=== PATIENT | female | born 1950 | race Caucasian/White ===

== ENCOUNTER 2023-07-05 08:47 | Outpatient (OUT) | payer MEDICARE, SELFPAY ==
[2023-07-05 09:16] LABS: Basophils Percent Auto 0.3 % (0.2-2.0); Eosinophils Percent Auto 0.8 % (0.9-7.0); Hematocrit 37.9 % (36.0-48.0); Hemoglobin 12.5 g/dL (12.0-16.0); Immature Granulocytes Abs Auto 0.09 10^3/uL (0.00-0.03); Immature Granulocytes Pct Auto 2.3 % (0.0-0.5); Lymphocytes Absolute Auto 1.7 10^3/uL (1.2-3.8); Lymphocytes Percent Auto 43.7 % (20.5-60.0); Mean Corpuscular Hemoglobin 31.6 pg (26.7-34.0); Mean Corpuscular Volume 95.7 fL (81.0-99.0); Mean Platelet Volume 9.6 fL (9.5-13.5); Monocytes Absolute Auto 0.4 10^3/uL (0.3-0.8); Monocytes Percent Auto 9.8 % (1.7-12.0); Neutrophils Absolute Auto 1.7 10^3/uL (1.4-6.5); Neutrophils Percent Auto 43.1 % (43.0-75.0); Platelet Count 248 10^3/uL (150-450); Red Blood Count 3.96 10^6/uL (4.20-5.40); Red Cell Distribution Width 12.5 % (11.0-15.0)
[2023-07-05 09:36] LABS: Estimated Average Glucose 120 mg/dL; Glycohemoglobin A1C 5.8 % (4.5-6.2)
[2023-07-05 09:48] LABS: Alanine Aminotransferase 19 U/L (14-59); Albumin Level 3.8 g/dL (3.4-5.0); Alkaline Phosphatase 64 U/L (46-116); Anion Gap 9.4; Aspartate Amino Transferase 10 U/L (15-37); BUN Creatinine Ratio 20.8; Bilirubin Total 0.7 mg/dL (0.2-1.0); Calcium 9.2 mg/dL (8.5-10.1); Carbon Dioxide 31.7 mmol/L (21.0-32.0); Chloride 104 mmol/L (98-107); Chol HDL Ratio 5.3; Cholesterol 276 mg/dL (<=200); Estimated GFR (African America >60 (>=60); Estimated GFR (Non-African Ame >60 (>=60); Free T3 2.65 pg/mL (2.18-3.98); Globulin 3.8 g/dL; Glucose 84 mg/dL (74-106); HDL Cholesterol 52 mg/dL (40-60); Potassium 4.1 mmol/L (3.5-5.1); Sodium 141 mmol/L (136-145); Thyroid Stimulating Hormone 2.032 uIU/mL (0.358-3.740); Total Protein 7.6 g/dL (6.4-8.2); Triglycerides 118 mg/dL (<=150); VLDL CHOLESTEROL 23.6 mg/dL
== END 2023-07-05 08:48 | disposition home or self-care (01) ==
LOC: LAB 08:51
PROVIDERS: PCP Family Medicine; Visit Provider Family Medicine
DX: E78.00 Pure hypercholesterolemia, unspecified (principal); I10 Essential (primary) hypertension; R73.09 Other abnormal glucose; D64.9 Anemia, unspecified; E55.9 Vitamin D deficiency, unspecified
CPT/HCPCS: 36415; 80053; 80061; 82306; 83036; 83540; 84436; 84443; 84481; 85025

== ENCOUNTER 2024-02-05 07:59 | Outpatient (OUT) | payer MEDICARE, SELFPAY ==
--- OUTSIDE RECORDS SUMMARY | 2024-02-05 08:16 | XMS_ITS | CCD ---
Author Organization [facility] CliniSyal Care Team Providers Care Booth Operator Name Role Phone Katharine Mak Unavailable Tavares Blount Primary Care Physician TARAH, DR CHAPIN Admitting Unavailable HOY, DR CHAPIN Attending Unavailable HOY, DR CHAPIN Primary Care Unavailable HOY, DR CHAPIN Consulting Unavailable West, DR Robertson Admitting Unavailable West, DR Robertson Attending Unavailable HOY, DR CHAPIN Primary Care Unavailable MOUKARBEL, DR MORALES Admitting Unavailable MOUKARBEL, DR MORALES Attending Unavailable HOY, DR CHAPIN Primary Care Unavailable HOY, DR CHAPIN Admitting Unavailable HOY, DR CHAPIN Attending Unavailable HOY, DR CHAPIN Primary Care Unavailable HOY, DR CHAPIN Admitting Unavailable HOY, DR CHAPIN Attending Unavailable HOY, DR CHAPIN Primary Care Unavailable HOY, DR CHAPIN Consulting Unavailable West, DR Robertson Consulting Unavailable HOY, DR CHAPIN Admitting Unavailable HOY, DR CHAPIN Attending Unavailable HOY, DR CHAPIN Primary Care Unavailable HOY, DR CHAPIN Consulting Unavailable ZIEBER, DR MARCEL Lee Consulting Unavailable HOY, DR CHAPIN Admitting Unavailable HOY, DR CHAPIN Attending Unavailable HOY, DR CHAPIN Primary Care Unavailable HOY, DR CHAPIN Consulting Unavailable HOY, DR CHAPIN Admitting Unavailable HOY, DR CHAPIN Attending Unavailable HOY, DR CHAPIN Primary Care Unavailable HOY, DR CHAPIN Consulting Unavailable YULIANAY, DR CHAPIN Admitting Unavailable HOY, DR CHAPIN Attending Unavailable HOY, DR CHAPIN Primary Care Unavailable HOY, DR CHAPIN Consulting Unavailable HOY, DR CHAPIN Admitting Unavailable HOY, DR CHAPIN Attending Unavailable HOY, DR CHAPIN Primary Care Unavailable HOY, DR CHAPIN Consulting Unavailable West, DR Robertson Consulting Unavailable EMILIANO HUTSON Attending Unavailable CARYL, EMILIANO E Attending Unavailable Allergies Allergy Classification Reported Allergen(s) Allergy Type Date of Onset Reaction(s) Facility (1 source) No Known Medication Allergies; Translations: [No Known Medication Allergies] Propensity to adverse reactions (disorder) [facility] Repository Medications Current Medications Medication Drug Class(es) Dates Sig (Normalized) Sig (Original) Aspirin (1 source) Platelet Aggregation Inhibitor, Nonsteroidal Anti-inflammatory Drug Baby Aspirin Active Calcium (1 source) Phosphate Binder, Calcium Calcium Active lisinopril 20 mg oral tablet (3 sources) Angiotensin Converting Enzyme Inhibitor Start: 04-12-2022 take 1 tablet by mouth once daily lisinopril 20 mg Tab 20 mg = 1 tab(s), Oral, Daily, # 30 tab(s), Refills(s) 0 Start Date: 04/12/22 Status: Ordered Lisinopril Activ e lovastatin 40 mg oral tablet (3 sources) HMG-CoA Reductase Inhibitor Start: 04-12-2022 take 1 tablet by mouth once daily lovastatin 40 mg Tab 40 mg = 1 tab(s), Oral, Daily, # 30 tab(s), Refills(s) 0 Start Date: 04/12/22 Status: Ordered Lovastatin Activ e Myrbetriq (2 sources) beta3-Adrenergic Agonist Start: 04-12-2022 Myrbetriq Refills(s) 0 Start Date: 04/12/22 Status: Ordered nitrofurantoin, macrocrystals 50 mg oral capsule (1 source) Nitrofuran Antibacterial Start: 04-17-2022 take 1 capsule by mouth once daily as needed Macrodantin 50 mg Cap 50 mg = 1 cap(s), Oral, Daily, PRN post-coital, # 15 cap(s), Refills(s) 1, Pharmacy: [facility]/pharmacy #[id number], 165, cm, 04/12/22 8:49:00 EDT, Height/Length Dosing, 68, kg, 04/12/22 8:49:00 EDT, Weight Dosing Start Date: 04/17/22 Status: Ordered nitrofurantoin, macrocrystals 25 mg / nitrofurantoin, monohydrate 75 mg oral capsule (1 source) Nitrofuran Antibacterial Start: 08-19-2021 take 1 capsule by mouth every twelve hours Macrobid 100 MG 1 cap(s) Orally bid for 5 day(s) Jul, Active omeprazole 20 mg delayed release oral capsule (3 sources) Proton Pump Inhibitor Start: 04-12-2022 take 1 capsule by mouth once daily omeprazole 20 mg Cap-DR 20 mg = 1 cap(s), Oral, Daily, Refills(s) 0 Start Date: 04/12/22 Status: Ordered Omeprazole Activ e phenazopyridine hydrochloride 200 mg oral tablet (1 source) Start: 08-19-2021 take 1 tablet by mouth every eight hours Pyridium 200 MG 1 tablet after meals Orally Three times a day for 2 day(s) Jul, Active Problems Active Problems Problem Classification Problem Date Documented Date Episodic/Chronic Calculus of urinary tract (4 sources) Kidney stone; Translations: [Calculus of kidney] Onset: 2 Episodic Congestive heart failure; nonhypertensive (1 source) Unspecified diastolic (congestive) heart failure; Translations: [UNSPECIFIED DIASTOLIC HEART FAILURE] Onset: 2 Chronic Disorders of lipid metabolism (2 sources) Hypercholesterolemia 04-12-2022 Chronic Essential hypertension (2 sources) Hypertensive disorder 04-12-2022 Chronic Genitourinary symptoms and ill-defined conditions (4 sources) Unspecified urinary incontinence; Translations: [UNSPECIFIED URINARY INCONTINENCE] Onset: 2 Chronic Genitourinary symptoms and ill-defined conditions (12 sources) Dysuria; Translations: [Hematuria, unspecified] Onset: 1 Resolved: 1 Episodic Hypertension with complications and secondary hypertension (1 source) Hypertensive heart disease with heart failure; Translations: [HTN HEART DISEASE W/HEART FAIL] Onset: 2 Chronic Other screening for suspected conditions (not mental disorders or infectious disease) (4 sources) Encounter for screening mammogram for malignant neoplasm of breast; Translations: [ENC SCR MAMMO MALIG NEOPLASM BREAST] Onset: 2 Episodic Urinary tract infections (10 sources) Urinary tract infection, site not specified; Translations: [Urinary tract infectious disease] Onset: 1 Resolved: 1 Episodic Past or Other Problems Problem Classification Problem Date Documented Da te Episodic/Chronic Deficiency and other anemia (1 source) Anemia, unspecified; Translations: [ANEMIA UNSPECIFIED] Onset: 01-13-2022 Episodic Diabetes mellitus without complication (1 source) Other abnormal glucose; Translations: [OTHER ABNORMAL GLUCOSE] Onset: 01-13-2022 Episodic Nonspecific chest pain (1 source) Chest pain, unspecified; Translations: [CHEST PAIN UNSPECIFIED] Onset: 02-06-2022 Episodic Other lower respiratory disease (4 sources) Dyspnea, unspecified; Translations: [DYSPNEA UNSPECIFIED] Onset: 02-02-2022 Episodic Results Test Name Value Interpretation Reference Range Facility MG MAMM SCREEN 3D SARITA CADon 08-17-2022 MG MAMM SCREEN 3D SARITA CAD Patient: JULIO CÉSAR SEGAL Exam Date: 08/17/2022 : 1950 Gender:F Ordering : DR TAVARES BLOUNT . Admission #: [id number] Family : Order #: [id number] CLICK HERE TO VIEW EXAM RADIOLOGY REPORT PROCEDURE: MAMMOGRAM SCREENING 3D BILATERAL CAD COMPARISON: MG MAMM SCREEN SARITA W CAD, 06/04/2020. MG MAMM SCREEN SARITA W CAD, 11/15/2016. INDICATIONS: Screening mammography Calculator Name NCI Breast Cancer Risk Assessment Tool 5 Year Breast Cancer Risk 1.20% Lifetime Breast Cancer Risk 2.90% Personal Breast Cancer No Personal Ovarian Cancer No Treatments None Family Cancers None LOCATION: [facility] BREAST COMPOSITION: Scattered areas fibroglandular density. FINDINGS: DIAGNOSTIC CATEGORY 2--BENIGN FINDING: RIGHT BREAST: No significant suspicious finding. Scattered benign-appearing calcifications are present. Scattered benign-appearing lymph nodes are present. No significant change has occurred. LEFT BREAST: No significant suspicious finding. Scattered benign-appearing calcifications are present. Scattered benign-appearing lymph nodes are present. No significant change has occurred. RECOMMENDATIONS: ROUTINE MAMMOGRAM AND CLINICAL EVALUATION IN 12 MONTHS. PLEASE NOTE: A NORMAL MAMMOGRAM DOES NOT EXCLUDE THE POSSIBILITY OF BREAST CANCER. A CLINICALLY SUSPICIOUS PALPABLE LUMP SHOULD BE BIOPSIED. Dictated by: Marcel Hinkle M.D. on 08/17/2022 at 15:35 Approved by: Marcel Hinkle M.D. on 08/17/2022 at 15:38 Normal [facility] US KIDNEYS BLADDERon 07-28-2 022 US KIDNEYS BLADDER EXAMINATION: US KIDNEYS BLADDER HISTORY: Incontinence COMPARISON: No relevant comparison available. TECHNIQUE: Ultrasound examination was performed of the bladder. FINDINGS: Right Kidney: Normal in size, contour and echotexture. The cortex measures 1.5 cm. Echogenic foci measuring up to 3 mm, nonobstructing nephrolithiasis. No solid cortical mass or hydronephrosis Height: 6.8 cm Length: 10.8 cm Width: 5.3 cm Left Kidney: Normal in size, contour and echotexture. The cortex measures 1.4 cm. No obstructing nephrolithiasis, solid cortical mass or hydronephrosis Height: 4.7 cm Length: 10.5 cm Width: 4.6 cm Urinary bladder is normal in appearance. Prevoid volume 469 mL. Post void volume 159 mL. Ureteral jets: Visualized bilaterally Other: Septated cystic lesion in the right hepatic lobe measuring 4.6 x 4.9 x 3.2 cm. IMPRESSION: Nonobstructing right nephrolithiasis Post void urinary bladder volume 159 mL Electronically authenticated by: JENNIFER RENE Date: 2022-03-23 06:52 Normal [facility] UA (CLEAN/CATCH) LABEL FUSER TENDER/MICRO I F IND.on 03-08-2022 Bilirubin Ql (U) Negative Normal NEGATIVE [facility] Comment on above: Performed By: #### U RCX #### [facility] [address] [place] [address] Dr. Aimee Villagomez Clarity (U) CLEAR Normal CLEAR [facility] Comment on above: Performed By: #### U RCX #### [facility] [address] [place] [address] Dr. Aimee Villagomez Color (U) LT. YELLOW Normal YELLOW [facility] Comment on above: Performed By: #### U RCX #### [facility] [address] [place] [address] Dr. Aimee Villagomez Glucose Ql (U) Negative Normal NEGATIVE [facility] Comment on above: Performed By: #### U RCX #### [facility] [address] [place] [address] Dr. Aimee Villagomez Hemoglobin Ql (U) Negative Normal NEGATIVE [facility] Comment on above: Performed By: #### U RCX #### [facility] [address] [place] [address] Dr. Aimee Villagomez Ketones Ql (U) Negative Normal NEGATIVE [facility] Comment on above: Performed By: #### U RCX #### [facility] [address] [address] [address] Aimee Villagomez LEUKOCYTES Negative Normal NEGATIVE [facility] Comment on above: Performed By: #### U RCX #### [facility] [address] [place] [address] Dr. Aimee Villagomez Nitrite Ql (U) Negative Normal NEGATIVE [facility] Comment on above: Performed By: #### U RCX #### [facility] [address] [address] [address] Aimee Villagomez pH (U) 7.0 [pH] Normal 5-9 [facility] Comment on above: Performed By: #### U RCX #### [facility] [address] [place] [address] Dr. Aimee Villagomez SPEC GRAVITY 1.010 Normal 1.005-<=1.025 [facility] Comment on above: Performed By: #### U RCX #### [facility] [address] [place] [address] Dr. Aimee Villagomez UA PROTEIN Negative Normal NEGATIVE/ TRACE [facility] Comment on above: Performed By: #### U RCX #### [facility] [address] [place] [address] Dr. Aimee Villagomez UR MICRO IND NOT INDICATED Normal [facility] Comment on above: Performed By: #### U RCX #### [facility] [address] [place] [address] Dr. Aimee Villagomez Urobilinogen Qn (U) 0.2 {Elizabeth'U}/dL Normal 0.2 - 1. 0 [facility] Comment on above: Performed By: #### U RCX #### [facility] [address] [place] [address] Dr. Aimee Villagomez NM STRESS/REST MULTIon 02-02 NM STRESS/REST MULTI Patient: JULIO CÉSAR SEGAL Exam Date: 02/02/2022 : 1950 Gender:F Ordering : DR TAVARES BLOUNT . Admission #: [id number] Family : Order #: [id number] CLICK HERE TO VIEW EXAM RADIOLOGY REPORT PROCEDURE: RADIONUCLIDE IMAGING STRESS/REST MULTI COMPARISON: NM STRESS/REST MULTI, 06/23/2020. INDICATIONS: Chest pain TECHNIQUE: Exam Description: Stress/Rest one day protocol gated SPECT Rest Imagin.3 mCi Tc-99m Cardiolite IV on 02/02/2022 Stress Imaging 30.3 mCi Tc-99m Cardiolite IV on 02/02/2022 Exercise Protocol: Eber Heart Rate (bpm): Rest: 68 Max: 146 PMHR: 99 Blood Pressure: Rest: 144/86 Max: 196/102 Exercise Time: Minutes: 4 Seconds: 37 Stage Reached: Stage: 2 Mets 7.0 Symptoms: Rest and peak stress ECG findings were abnormal and the exercise portion of the study was Non-diagnostic per attending physician Dr. Royal due to EKG changes during recovery. For more details please see separate cardiac stress test report. FINDINGS: QUALITY OF STUDY: Excellent. PERFUSION DEFECT: None. LOCATION: N/A SIZE: N/A. SEVERITY: N/A. TYPE: N/A. WALL MOTION: Normal. LV SIZE: Normal. 54 mL. TID / TCD: None; 0.6 LVEF: Normal. Calculated EF 88%. SUMMARY: Myocardial perfusion imaging study is NORMAL. CONCLUSION: 1. No reversible ischemia 2. Abnormal exercise test secondary to EKG changes Dictated by: Jennifer Rene MD on 02/03/2022 at 11:55 Approved by: Jennifer Rene MD on 02/03/2022 at 11:56 Normal [facility] ECHOCARDIO M/2D COMPLETEon 0 01-18-2022 ECHOCARDIO M/2D COMPLETE Patient: JULIO CÉSAR SEGAL Exam Date: 01/18/2022 : 1950 Gender:F Ordering : DR TAVARES BLOUNT . Admission #: [id number] Family : Order #: [id number] CLICK HERE TO VIEW EXAM ECHOCARDIOGRAM REPORT PROCEDURE: CARDIO PULMONARY ECHOCARDIO M/2D COMP INDICATIONS: Dyspnea COMPARISON: None. DESCRIPTION: COMPLETE ECHOCARDIOGRAM Real-time transthoracic echocardiography with 2D, M-mode, spectral and color flow Doppler performed. QUALITY: Technical quality was limited. 65 150# 120/62 HR 79 LEFT VENTRICLE: Normal chamber size. Mild concentric left ventricular hypertrophy. Global left ventricular systolic function is hyperdynamic. LV EF: Estimated ejection fraction is 75%. DIASTOLIC: Diastolic function is indeterminate. ATRIAL SEPTUM: LEFT ATRIUM: Normal chamber size. RIGHT ATRIUM: Normal chamber size. RIGHT VENTRICLE: Normal chamber size. Normal right ventricular systolic function. TRICUSPID VALVE: Normal mobility and thickness. No stenosis with trivial regurgitation. Unable to calculate right sided pressures due to lack of tricuspid regurgitation. MITRAL VALVE: Normal mobility and thickness. No evidence of mitral valve stenosis. Trivial mitral regurgitation. AORTIC VALVE: Normal trileaflet appearance. No evidence of aortic valve stenosis. No aortic regurgitation. AORTIC ROOT: Normal diameter and appearance. PULMONIC VALVE: Normal thickness and mobility. No stenosis. Trivial regurgitation. PERICARDIUM: No evidence of pericardial effusion. IVC: Not well visualized. PLEURA: CONCLUSION: 1. Mild concentric left ventricular hypertrophy with hyperdynamic systolic function. LVEF is 75% 2. Normal right ventricular systolic function. 3. No significant valvular dysfunction. 4. No pericardial effusion. Adult Echocardiography Procedure Report Left Ventricle Left Atrium Mitral Valve Right Ventricle Aorta Aortic Valve Peak Velocity (Antegrade Flow): 1.58 m/s AoV Area (Peak Aston): 3.29 cm2, 3.29 cm2 Peak Velocity(Antegrade Flow): 1.58 m/s Peak Gradient(Antegrade Flow): 10.03 mm[Hg] Tricuspid Valve Peak Velocity: 0.50 m/s, 0.50 m/s Pulmonic Valve PV Max Aston (0.6 - 0.9 m per sec): 0.97 m/s PV Max Gradient: 3.76 mm[Hg] Right Atrium Dictated by: Carmen Mann M.D. on 01/19/2022 at 13:25 Approved by: Carmen Mann M.D. on 01/19/2022 at 13:28 Normal [facility] SARS-CoV2 ANTIBODIES, NUCLEO CAPSIDon 01-12-2022 SARS-CoV-2 (COVID-19) RNA ROZ+probe Ql (Unsp spec) Positive Normal Negative [facility] Comment on above: Result Comment: Resu lts suggest recent or prior infection with SARS-CoV-2. Correlation with epidemiologic risk factors and other clinical and laboratory findings is recommended. Serologic results should not be used as the sole basis to diagnose or exclude recent SARS-CoV-2 infection. False positive results infrequently occur due to prior infection with other human Coronaviruses. This assay will not detect antibodies induced by the currently available SARS-CoV-2 vaccines. The current vaccines elicit antibodies specific to the viral spike protein. [employer] offers two test codes that detect viral spike-specific antibodies: 863305 SARS-CoV-2 Semi-Quantitative Total Antibody, Marques and 318554 SARS-CoV-2 Antibody, IgG, Marques (Qualitative). Positive results with this SARS-CoV-2 Antibodies, Nucleocapsid assay suggest recent or previous natural infection with SARS-CoV-2. Performed By: #### C VDABS #### [facility] [address] [place] [address] Dr. Aimee Villagomez BNPon 01-10-2022 Natriuretic peptide B (Bld) [Mass/Vol] 16.0 pg/mL Normal <=900.0 [facility] Comment on above: Performed By: #### U RCX #### [facility] [address] [place] [address] Dr. Aimee Villagomez CBC AUTO DIFFon 01-10-2022 BASO # 0.0 103/ul Normal 0.0-0.1 [facility] Comment on above: Performed By: #### C BC #### [facility] [address] [place] [address] Dr. Aimee Villagomez Basophils/100 WBC (Bld) 0.4 % Normal 0.2-2.0 [facility] Comment on above: Performed By: #### C BC #### [facility] [address] [place] [address] Dr. Aimee Villagomez EO # 0.0 103/ul Normal 0.0-0.7 [facility] Comment on above: Performed By: #### C BC #### [facility] [address] [place] [address] Dr. Aimee Villagomez Eosinophils/100 WBC (Bld) 0.9 % Normal 0.9-7.0 [facility] Comment on above: Performed By: #### C BC #### [facility] [address] [place] [address] Dr. Aimee Villagomez Erythrocyte distribution width (RBC) [Ratio] 12.5 % Normal 11.0-15.0 [facility] Comment on above: Performed By: #### C BC #### [facility] [address] [place] [address] Dr. Aimee Villagomez Hematocrit (Bld) [Volume fraction] 38.9 % Normal 36.0-48.0 [facility] Comment on above: Performed By: #### C BC #### [facility] [address] [place] [address] Dr. Aimee Villagomez Hemoglobin (Bld) [Mass/Vol] 12.7 g/dL Normal 12.0-16.0 [facility] Comment on above: Performed By: #### C BC #### [facility] [address] [place] [address] Dr. Aimee Villagomez IG # 0.06 10e3/ul Critically high 0.00-0.03 [facility] Comment on above: Performed By: #### C BC #### [facility] [address] [place] [address] Dr. Aimee Villagomez IG % 1.3 % Critically high 0.0-0.5 [facility] Comment on above: Performed By: #### C BC #### [facility] [address] [place] [address] Dr. Aimee Villagomez LYMPH # 2.0 103/ul Normal 1.2-3.8 [facility] Comment on above: Performed By: #### C BC #### [facility] [address] [place] [address] Dr. Aimee Villagomez Lymphocytes/100 WBC (Bld) 43.3 % Normal 20.5-60.0 [facility] Comment on above: Performed By: #### C BC #### [facility] [address] [place] [address] Dr. Aimee Villagomez MANUAL DIFF REQ NO Normal [facility] Comment on above: Performed By: #### C BC #### [facility] [address] [place] [address] Dr. Aimee Villagomez MCH (RBC) [Entitic mass] 31.1 pg Normal 26.7-34.0 [facility] Comment on above: Performed By: #### C BC #### [facility] [address] [address] [address] Aimee Villagomez MCHC (RBC) [Mass/Vol] 32.6 g/dL Normal 29.9-35.2 [facility] Comment on above: Performed By: #### C BC #### [facility] [address] [place] [address] Dr. Aimee Villagomez MCV (RBC) [Entitic vol] 95.3 fL Normal 81.0-99.0 [facility] Comment on above: Performed By: #### C BC #### [facility] [address] [place] [address] Dr. Aimee Villagomez MONO # 0.4 103/ul Normal 0.3-0.8 [facility] Comment on above: Performed By: #### C BC #### [facility] [address] [place] [address] Dr. Aimee Villagomez Monocytes/100 WBC (Bld) 9.5 % Normal 1.7-12.0 [facility] Comment on above: Performed By: #### C BC #### [facility] [address] [place] [address] Dr. Aimee Villagomez NEUT # 2.1 103/ul Normal 1.4-6.5 [facility] Comment on above: Performed By: #### C BC #### [facility] [address] [place] [address] Dr. Aimee Villagomez Neutrophils/100 WBC (Bld) 44.6 % Normal 43.0-75.0 [facility] Comment on above: Performed By: #### C BC #### [facility] [address] [place] [address] Dr. Aimee Villagomez Platelet mean volume (Bld) [Entitic vol] 8.9 fL Critically low 9.5-13.5 [facility] Comment on above: Performed By: #### C BC #### [facility] [address] [place] [address] Dr. Aimee Villagomez PLT 298 103/ul Normal 150-450 [facility] Comment on above: Performed By: #### C BC #### [facility] [address] [place] [address] Dr. Aimee Villagomez RBC 4.08 106/ul Critically low 4.20-5.40 [facility] Comment on above: Performed By: #### C BC #### [facility] [address] [address] [address] Aimee Villagomez WBC 4.6 103/ul Normal 4.0-11.0 [facility] Comment on above: Performed By: #### C BC #### [facility] [address] [address] [address] Aimee Villagomez FREE THYROXINE INDEX T7on FTI 2.16 Normal 1.30-4.50 [facility] Comment on above: Performed By: #### U RCX #### [facility] [address] [address] [address] Aimee Villagomez T3U 36.0 % Normal 30.0-39.0 [facility] Comment on above: Performed By: #### U RCX #### [facility] [address] [address] [address] Aimee Villagomez T4 [Mass/Vol] 6.00 ug/dL Normal 4.80-13.90 [facility] Comment on above: Performed By: #### U RCX #### [facility] [address] [place] [address] Dr. Aimee Villagomez GLYCOHEMOGLOBIN A1Con 2021 ADA RECOMMENDATION SEE BELOW Normal [facility] Comment on above: Result Comment: ADA RECOMMENDED LIMIT 4.0 - 6.0 ADA THERAPEUTIC TARGET < 7.0 ACTION SUGGESTED > 7.0 Performed By: #### A 1C #### [facility] [address] [place] [address] Dr. Aimee Villagomez Glucose [Mass/Vol] 123 mg/dL Normal [facility] Comment on above: Performed By: #### A 1C #### [facility] [address] [place] [address] Dr. Aimee Villagomez HbA1c (Bld) [Mass fraction] 5.9 % Normal 4.5-6.2 [facility] Comment on above: Performed By: #### A 1C #### [facility] [address] [place] [address] Dr. Aimee Villagomez IRONon 01-10-2022 Iron [Mass/Vol] 117.0 ug/dL Normal 50.0-170.0 [facility] Comment on above: Performed By: #### I SIENA #### [facility] [address] [place] [address] Dr. Aimee Villagomez PROF 14(COMP METB)on 022 Albumin [Mass/Vol] 3.9 g/dL Normal 3.4-5.0 [facility] Comment on above: Performed By: #### C MP, BNP, TSH, T7 #### [facility] [address] [place] [address] Dr. Aimee Villagomez Albumin/Globulin [Mass ratio] 1.0 {ratio} Normal [facility] Comment on above: Performed By: #### C MP, BNP, TSH, T7 #### [facility] [address] [place] [address] Dr. Aimee Villagomez ALP [Catalytic activity/Vol] 72 U/L Normal 46-116 [facility] Comment on above: Performed By: #### C MP, BNP, TSH, T7 #### [facility] [address] [place] [address] Dr. Aimee Villagomez ALT [Catalytic activity/Vol] 23 U/L Normal 14-59 [facility] Comment on above: Performed By: #### C MP, BNP, TSH, T7 #### [facility] [address] [place] [address] Dr. Aimee Villagomez Anion gap [Moles/Vol] 11.8 mmol/L Normal [facility] Comment on above: Performed By: #### C MP, BNP, TSH, T7 #### [facility] [address] [place] [address] Dr. Aimee Villagomez AST [Catalytic activity/Vol] 23 U/L Normal 15-37 [facility] Comment on above: Performed By: #### C MP, BNP, TSH, T7 #### [facility] [address] [place] [address] Dr. Aimee Villagomez Bilirubin [Mass/Vol] 0.7 mg/dL Normal 0.2-1.0 [facility] Comment on above: Performed By: #### C MP, BNP, TSH, T7 #### [facility] [address] [address] [address] Aimee Villagomez Calcium [Mass/Vol] 9.3 mg/dL Normal 8.5-10.1 [facility] Comment on above: Performed By: #### C MP, BNP, TSH, T7 #### [facility] [address] [address] [address] Aimee Villagomez Chloride [Moles/Vol] 102 mmol/L Normal 98-107 [facility] Comment on above: Performed By: #### C MP, BNP, TSH, T7 #### [facility] [address] [place] [address] Dr. Aimee Villagomez CO2 [Moles/Vol] 27.6 mmol/L Normal 21.0-32.0 [facility] Comment on above: Performed By: #### C MP, BNP, TSH, T7 #### [facility] [address] [place] [address] Dr. Aimee Villagomez Creatinine [Mass/Vol] 0.98 mg/dL Normal 0.55-1.02 [facility] Comment on above: Performed By: #### C MP, BNP, TSH, T7 #### [facility] [address] [place] [address] Dr. Aimee Villagomez EGFR-AF INDIAN >60 Normal >=60 [facility] Comment on above: Performed By: #### C MP, BNP, TSH, T7 #### [facility] [address] [place] [address] Dr. Aimee Villagomez EGFR-NON AF INDIAN 56 mL/min/1.73m2 Critically low >=60 [facility] Comment on above: Performed By: #### C MP, BNP, TSH, T7 #### [facility] [address] [place] [address] Dr. Aimee Villagomez Globulin (S) [Mass/Vol] 3.9 g/dL Normal [facility] Comment on above: Performed By: #### C MP, BNP, TSH, T7 #### [facility] [address] [place] [address] Dr. Aimee Villagomez Glucose [Mass/Vol] 89 mg/dL Normal 74-106 [facility] Comment on above: Performed By: #### C MP, BNP, TSH, T7 #### [facility] [address] [place] [address] Dr. Aimee Villagomez Potassium [Moles/Vol] 4.4 mmol/L Normal 3.5-5.1 [facility] Comment on above: Performed By: #### C MP, BNP, TSH, T7 #### [facility] [address] [place] [address] Dr. Aimee Villagomez Protein [Mass/Vol] 7.8 g/dL Normal 6.4-8.2 [facility] Comment on above: Performed By: #### C MP, BNP, TSH, T7 #### [facility] [address] [place] [address] Dr. Aimee Villagomez Sodium [Moles/Vol] 137 mmol/L Normal 136-145 [facility] Comment on above: Performed By: #### C MP, BNP, TSH, T7 #### [facility] [address] [place] [address] Dr. Aimee Villagomez Urea nitrogen [Mass/Vol] 24.0 mg/dL Critically high 7.0-18.0 [facility] Comment on above: Performed By: #### C MP, BNP, TSH, T7 #### [facility] [address] [place] [address] Dr. Aimee Villagomez Urea nitrogen/Creatinine [Mass ratio] 24.5 mg/mg Normal [facility] Comment on above: Performed By: #### C MP, BNP, TSH, T7 #### [facility] [address] [place] [address] Dr. Aimee Villagomez TSHon 01-10-2022 TSH 2.915 uIU/mL Normal 0.358-3.740 [facility] Comment on above: Performed By: #### U RCX #### [facility] [address] [place] [address] Dr. Aimee Villagomez TSH RANGE SEE BELOW Normal [facility] Comment on above: Result Comment: <0.3 4 UIU/ml HYPERTHYROID 0.34-5.60 UIU/ml EUTHYROID >5.60 UIU/ml HYPOTHYROID Performed By: #### U RCX #### [facility] [address] [place] [address] Dr. Aimee Villagomez CULTURE URINEon 10-10-2021 CULTURE URINE Culture Observations : VERY LIGHT GROWTH OF MIXED GENITAL EDUARDO. NO POTENTIAL PATHOGENS SEEN. Normal [facility] Comment on above: Performed By: #### U RCX #### [facility] [address] [place] [address] Dr. Aimee Villagomez UA RANDOM W/MICROSCOPICon BACTERIA SMALL Abnormal NONE SEEN [facility] Comment on above: Performed By: #### U AMIC #### [facility] [address] [place] [address] Dr. Aimee Villagomez Bilirubin Ql (U) Negative Normal NEGATIVE [facility] Comment on above: Performed By: #### U AMIC #### [facility] [address] [place] [address] Dr. Aimee Villagomez CAST NONE SEEN Normal NONE SEEN [facility] Comment on above: Performed By: #### U AMIC #### [facility] [address] [place] [address] Dr. Aimee Villagomez Clarity (U) CLEAR Normal CLEAR [facility] Comment on above: Performed By: #### U AMIC #### [facility] [address] [place] [address] Dr. Aimee Villagomez Color (U) LT. YELLOW Normal YELLOW [facility] Comment on above: Performed By: #### U AMIC #### [facility] [address] [place] [address] Dr. Aimee Villagomez Crystals LM Nom (Urine sed) NONE SEEN Normal NONE SEEN [facility] Comment on above: Performed By: #### U AMIC #### [facility] [address] [place] [address] Dr. Aimee Villagomez Epithelial cells LM Ql (Urine sed) RARE Normal NONE SEEN /RARE [facility] Comment on above: Performed By: #### U AMIC #### [facility] [address] [address] [address] Aimee Villagomez Glucose Ql (U) Negative Normal NEGATIVE [facility] Comment on above: Performed By: #### U AMIC #### [facility] [address] [address] [address] Aimee Villagomez Hemoglobin Ql (U) LARGE Abnormal NEGATIVE [facility] Comment on above: Performed By: #### U AMIC #### [facility] [address] [address] [address] Aimee Villagomez Ketones Ql (U) Negative Normal NEGATIVE [facility] Comment on above: Performed By: #### U AMIC #### [facility] [address] [address] [address] Aimee Villagomez LEUKOCYTES SMALL Abnormal NEGATIVE [facility] Comment on above: Performed By: #### U AMIC #### [facility] [address] [address] [address] Aimee Villagomez MUCOUS NONE SEEN Normal NONE SEEN [facility] Comment on above: Performed By: #### U AMIC #### [facility] [address] [address] [address] Aimee Villagomez Nitrite Ql (U) Negative Normal NEGATIVE [facility] Comment on above: Performed By: #### U AMIC #### [facility] [address] [address] [address] Aimee Villagomez pH (U) 6.0 [pH] Normal 5-9 [facility] Comment on above: Performed By: #### U AMIC #### [facility] [address] [address] [address] Aimee Villagomez RBC 10-20 Abnormal 0-2 [facility] Comment on above: Performed By: #### U AMIC #### [facility] [address] [address] [address] Aimee Villagomez SPEC GRAVITY 1.015 Normal 1.005-<=1.025 [facility] Comment on above: Performed By: #### U AMIC #### [facility] [address] [address] [address] Aimee Villagomez UA PROTEIN 30 mg/dl Abnormal NEGATIVE/ TRACE [facility] Comment on above: Performed By: #### U AMIC #### [facility] [address] [address] [address] Aimee Villagomez Urobilinogen Qn (U) 0.2 {Elizabeth'U}/dL Normal 0.2 - 1. 0 [facility] Comment on above: Performed By: #### U AMIC #### [facility] [address] [address] [address] Aimee Villagomez WBC 10-20 Abnormal NONE SEEN [facility] Comment on above: Performed By: #### U AMIC #### [facility] [address] [address] [address] Aimee Villagomez Urine Cultureon 09-17-2021 Bacteria identified Cx Nom (U) Reason for Exam Frequency of urination Urine ORGANISM: Escherichia coli (O:ESCCOL) [place] Count 100,000 Aerobic LYNDSEY Charge (NUC86) ---- SUSCEPTIBILITY --- ORGANISM: O:ESCCOL ANTIBIOTIC INTERPRETATION LYNDSEY Amikacin S <16 Ampicillin R >16 Ampicillin/Sulbactam R >16/8 Aztreonam S <4 Cefazolin S 16 Cefepime S <2 Ceftazidime S <1 Ceftazidime/Avibactam S <8 Ceftriaxone S <1 Ciprofloxacin S <1 Ertapenem S <0.5 Gentamicin S <4 Levofloxacin S <2 Meropenem S <1 Nitrofurantoin S <32 Piperacillin/Tazobact am S <16 Tetracycline S <4 Tigecycline S <2 Tobramycin S <4 Trimethoprim/Sulfamet hoxazole R >2/38 S = SUSCEPTIBLE I = INTERMEDIATE R = RESISTANT BLANK = DATA NOT AVAILABLE, OR DRUG NOT ADVISABLE OR TESTED R* = RESISTANCE DUE TO EXTENDED SPECTRUM BETA-LACTAMASES ESBL = EXTENDED SPECTRUM BETA-LACTAMASE TFG = THYMIDINE-DEPENDENT STRAIN AROLDO = BETA-LACTAMASE POSITIVE IB = INDUCIBLE BETA-LACTAMASE. APPEARS IN PLACE OF 'S' WITH SPECIES KNOWN TO POSSESS INDUCIBLE BETA-LACTAMASES. POTENTIALLY THEY MAY BECOME RESISTANT TO ALL B-LACTAM DRUGS. PERFORMED BY: [address] [id number] PATHOLOGIST CORRECTIONS [employer] EMERITA CISNEROS M.D. [facility] Comment on above: Performed By: #### C UU #### [facility] [address] [place], [place] [id number] [facility] Urine Cultureon 08-19-2021 Bacteria identified Cx Nom (U) Reason for Exam Dysuria Urine ORGANISM: Strep. agalactiae Grp B (O:B) [place] Count 15,000 PERFORMED BY: [address] [id number] PATHOLOGIST CORRECTIONS [employer]ENANT EMERITA CISNEROS M.D. [facility] Comment on above: Performed By: #### C UU #### [address] [id number] [facility] Vital Signs Date Time Vital Sign Value Performing Clinician Facility 04-12-2022 08:44-0400 Blood Pressure Location EMILIANO HUTSON [facility] 04-12-2022 08:44-0400 Diastolic blood pressure 72 mm[Hg] EMILIANO HUTSON [facility] 04-12-2022 08:44-0400 Heart rate 66 /min EMILIANO HUTSON [facility] 04-12-2022 08:44-0400 Systolic blood pressure 126 mm[Hg] EMILIANO HUTSON [facility] 08-19-2021 10:50-0500 Body height 165.1 cm Katharine Mak Other [facility] Other 08-19-2021 10:50-0500 Body mass index (BMI) [Ratio] 25.96 kg/m2 Katharine Mak Other [facility] Other 08-19-2021 10:50-0500 Body temperature 96.8 [degF] Katharine Gordonmond Other [facility] Other 08-19-2021 10:50-0500 Body weight 70.76 kg Katharine Gordonmond Other [facility] Other 08-19-2021 10:50-0500 Diastolic blood pressure 91 mm[Hg] Katharine Gordonmond Other [facility] Other 08-19-2021 10:50-0500 Respiratory rate 18 /min Katharine Mak Other [facility] Other 08-19-2021 10:50-0500 SaO2% (BldA) [Mass fraction] 99 % Katharine Mak Other [facility] Other 08-19-2021 10:50-0500 Systolic blood pressure 148 mm[Hg] Katharine Gordonmond Other [facility] Other Encounters Encounter Date Encounter Type Care Provider Facility Start: 04-25-2023 End: 04-26-2023 ambulatory EMILIANO HUTSON Facility:[facility] Start: 04-25-2023 End: 04-25-2023 Patient encounter procedure EMILIANO HUTSON [facility] Start: 10-11-2022 ambulatory EMILIANO HUTSON Facili ty:[facility] Start: 08-17-2022 End: 08-18-[address] TAVARES BLOUNT Facility:[facility] Start: 04-12-2022 End: 04-12-2022 Patient encounter procedure EMILIANO HUTSON [facility] Start: 03-27-[address] CARMEN MANN Fac ility:[facility] Start: 03-22-2022 End: 03-23-[address] TAVARES BLOUNT Facility:[facility] Start: 03-08-2022 End: 03-09-[address] TAVARES BLOUNT Facility:[facility] Start: 02-02-2022 End: 02-03-[address] TAVARES BLOUNT Facility:[facility] Start: 01-18-2022 End: 01-19-[address] TAVARES BLOUNT Facility:[facility] Start: 01-13-2022 Encounter for antibo dy response examination DR TAVARES BLOUNT [facility] Start: 01-10-2022 End: 01-11-[address] TAVARES BLOUNT Facility:[facility] Start: 12-01-[address] TAVARES BLOUNT Facility :[facility] Start: 10-24-[address] Jennifer Rene Facility: [facility] Start: 10-10-2021 End: 10-11-[address] TAVARES BLOUNT Facility:[facility] Start: 08-19-2021 End: 08-19-2021 ambulatory Katharine Mak Other [facility] Other Start: 08-19-2021 Office outpatient ne w 30 minutes Katharine Mak [facility] Procedures Date Procedure Procedure Detail Performing Clinician Abdominal hysterectomy RON HUTSON Colonoscopy EMILIANO HUTSON Payers Date Payer Category Payer Medicare [id number] 2.16.8 [id number] 1961 Medicare [id number] 1961 Self-pay [id number] 1950 Unknown [id number] 2.16.84 [id number] 1948 Unknown [id number] 2.16.84 [id number] 1948 Unknown [id number] 2.16.84 [id number] 1948 Unknown [id number] 2.16.84 [id number] 1948 Unknown [id number] 2.16.84 [id number] 1948 Unknown [id number] 2.16.84 [id number] 1948 Unknown [id number] 2.16.84 [id number] 1948 Unknown [id number] 2.16.84 [id number] 1948 Unknown [id number] 2.16.84 [id number] 1948 Unknown [id number] 2.16.84 [id number] 1948 Unknown [id number] 2.16.8 [id number] 1948 Unknown [id number] 2.16.8 [id number] Social History Date Type Detail Facility Sex Assigned At [facility] [employer] Other No Smoking Status Entered [facility] Tobacco smoking status No Smoking Status [facility] Status Date Assessment Result Facility 04-12-2022 N/A [facility] Discharge instructions 04-12-2022 Note Date & Type Note Facility 04-12-2022 Hospital Discharg e instructions Patient Education 04/12/2022 10:10:59 Kidney Stones, Dpji-cj-Wibs Kidney Stones Kidney stones are rock-like masses that form inside of the kidneys. Kidneys are organs that make pee (urine). A kidney stone may move into other parts of the urinary tract, including: The tubes that connect the kidneys to the bladder (ureters). The bladder. The tube that carries urine out of the body (urethra). Kidney stones can cause very bad pain and can block the flow of pee. The stone usually leaves your body (passes) through your pee. You may need to have a doctor take out the stone. What are the causes? Kidney stones may be caused by: A condition in which certain glands make too much parathyroid hormone (primary hyperparathyroidism). A buildup of a type of crystals in the bladder made of a chemical called uric acid. The body makes uric acid when you eat certain foods. Narrowing (stricture) of one or both of the ureters. A kidney blockage that you were born with. Past surgery on the kidney or the ureters, such as gastric bypass surgery. What increases the risk? You are more likely to develop this condition if: You have had a kidney stone in the past. You have a family history of kidney stones. You do not drink enough water. You eat a diet that is high in protein, salt (sodium), or sugar. You are overweight or very overweight (obese). What are the signs or symptoms? Symptoms of a kidney stone may include: Pain in the side of the belly, right below the ribs (flank pain). Pain usually spreads (radiates) to the groin. Needing to pee often or right away (urgently). Pain when going pee (urinating). Blood in your pee (hematuria). Feeling like you may vomit (nauseous). Vomiting. Fever and chills. How is this treated? Treatment depends on the size, location, and makeup of the kidney stones. The stones will often pass out of the body through peeing. You may need to: Drink more fluid to help pass the stone. In some cases, you may be given fluids through an IV tube put into one of your veins at the hospital. Take medicine for pain. Make changes in your diet to help keep kidney stones from coming back. Sometimes, medical procedures are needed to remove a kidney stone. This may involve: A procedure to break up kidney stones using a beam of light (laser) or shock waves. Surgery to remove the kidney stones. Follow these instructions at home: Medicines Take pitr-lda-qatpsxq and prescription medicines only as told by your doctor. Ask your doctor if the medicine prescribed to you requires you to avoid driving or using heavy machinery. Eating and drinking Drink enough fluid to keep your pee pale yellow. You may be told to drink at least 8 10 glasses of water each day. This will help you pass the stone. If told by your doctor, change your diet. This may include: ?Limiting how much salt you eat. ?Eating more fruits and vegetables. ?Limiting how much meat, poultry, fish, and eggs you eat. Follow instructions from your doctor about eating or drinking restrictions. General instructions Collect pee samples as told by your doctor. You may need to collect a pee sample: ?24 hours after a stone comes out. ?8 12 weeks after a stone comes out, and every 6 12 months after that. Strain your pee every time you pee (urinate), for as long as told. Use the strainer that your doctor recommends. Do not throw out the stone. Keep it so that it can be tested by your doctor. Keep all follow-up visits as told by your doctor. This is important. You may need follow-up tests. How is this prevented? To prevent another kidney stone: Drink enough fluid to keep your pee pale yellow. This is the best way to prevent kidney stones. Eat healthy foods. Avoid certain foods as told by your doctor. You may be told to eat less protein. Stay at a healthy weight. Where to find more information National Kidney Foundation (NKF): www.kidney.org U[employer] Care Foundation (UCF): www.urologyhealth.org Contact a doctor if: You have pain that gets worse or does not get better with medicine. Get help right away if: You have a fever or chills. You get very bad pain. You get new pain in your belly (abdomen). You pass out (faint). You cannot pee. Summary Kidney stones are rock-like masses that form inside of the kidneys. Kidney stones can cause very bad pain and can block the flow of pee. The stones will often pass out of the body through peeing. Drink enough fluid to keep your pee pale yellow. This information is not intended to replace advice given to you by your health care provider. Make sure you discuss any questions you have with your health care provider. Document Released: 01/29/2009 Document Revised: 12/30/2019 Document Reviewed: 12/30/2019 [employer] Patient Education 2019 [employer]. Follow Up Care 03/24/2022 15:32:49 With:EMILIANO HUTSON PA-C, URL Address: [address] [place] [address] Business (1) When:6 months [facility] Evaluation note 08-19-2021 Note Date & Type Note Facility 08-19-2021 Evaluation note Encounter Date Diagnosis Assessment Notes Jul, Dysuria (ICD-10 - R30.0) Jul, Urinary tract infection, site not specified (ICD-10 - N39.0) Drink plenty fluids, get plenty of rest. Take the Macrobid as prescribed until gone. Take the Pyridium as prescribed until gone. Follow-up with your family physician if no improvement in 2 to 3 days. Jul, Hematuria, unspecified (ICD-10 - R31.9) [facility] Other Evaluation + Plan note Note Date & Type Note Facility Evaluation + Plan note Future Appointments Appointment Date:10/11/2022 01:00:00 PM Scheduled Provider:EMILIANO HUTSON PA-C Location:[facility] Appointment Type:URO Office Visit [facility] History general Narrative - Reported Note Date & Type Note Facility History general Narrative - Reported Type Medical History hypertension Medical History hypercholesterolemia Surgical History HYSTERECTOMY Hospitalization History see above [facility] Other Hospital course Narrative Note Date & Type Note Facility Hospital course Narrative No data available for this section [facility] Hospital Discharge instructions Note Date & Type Note Facility Hospital Discharge instructions No data available for this section [facility] Progress note Note Date & Type Note Facility Progress note No data available for this section [facility] Summary Purpose Family History No Family History Records FoundNo Family History Records FoundNo Family History Records Found Advance Directives No Advanced Directives Records FoundNo Advanced Directives Records FoundNo Advanced Directives Records Found Additional Source Comments INFORMATION SOURCE (unrecogn ized section and content) DATE CREATED AUTHOR 09/19/2021 [facility] DATE CREATED AUTHOR AUTHOR'S ORGANIZ ATION 08/23/2022 [facility] DATE CREATED AUTHOR AUTHOR'S ORGANIZ ATION 04/27/2023 [facility] REASON FOR VISIT (unrecogniz ed section and content) DYSURIA Care Team (unrecognized sect ion and content) Personnel Name: Tavares Blount MD Address: [address] [place] [address] Personnel Name: Tavares Blount MD Address: Address: [address] [place] [address] FOR RECORDS PERTAINING TO PATIENTS WHO ARE OR HAVE BEEN ENROLLED IN A CHEMICAL DEPENDENCY/SUBSTANCEABUSE PROGRAM, SOME INFORMATION MAY BE OMITTED. This clinical summary was aggregated from multiple sources. Caution should be exercised in using it in the provision of clinical care. This summary normalizes information from multiple sources, and as a consequence, information in this document may materially change the coding, format and clinical context of patient data. In addition, data may be omitted in some cases. CLINICAL DECISIONS SHOULD BE BASED ON THE PRIMARY CLINICAL RECORDS. [facility] [employer] [facility]. provides no warranty or guarantee of the accuracy or completeness of information in this document.
--- NOTE | 2024-02-05 08:25 | NM_ITS ---
Patient Name: JULIO CÉSAR SEGAL MR#: [id number] : 1950 Exam Date: 02/05/2024 Ordering Doctor: DR TAVARES RASCON . RADIOLOGY REPORT PROCEDURE: NM PARTHA PERF SPECT REST STR COMPARISON: None. INDICATIONS: SHORTNESS OF BREATH TECHNIQUE: Exam Description: Stress/Rest one day protocol gated SPECT Rest Imagin.9 mCi Tc-99m Cardiolite IV on 02/05/2024 Stress Imaging 30.3 mCi Tc-99m Cardiolite IV on 02/05/2024 Exercise Protocol: Eber Heart Rate (bpm): Rest: 67 Max: 131 PMHR: 90 Blood Pressure: Rest: 138/90 Max: 186/90 Exercise Time: Minutes: 5 Seconds: 02 Stage Reached: Stage: 2 Mets 7.0 Symptoms: Rest and peak stress ECG findings were normal and the exercise portion of the study was normal per attending physician Dr. Royal . For more details please see separate cardiac stress test report. FINDINGS: QUALITY OF STUDY: Good. PERFUSION DEFECT: None. LOCATION: Apical anterior. [place]. SIZE: Small (1-2 segments). SEVERITY: Mild. TYPE: Persistent. WALL MOTION: Normal. LV SIZE: Normal. 40 mL. TID / TCD: None; 0.6 LVEF: Normal. Calculated EF 95%. SUMMARY: Myocardial perfusion imaging study has ABNORMAL findings. CONCLUSION: 1. Small fixed defect in the apex 2. No reversible ischemia 3. Normal exercise test Dictated by: Marcelo Bro MD on 02/06/2024 at 08:33 Approved by: Marcelo Bro MD on 02/06/2024 at 08:49
--- NOTE | 2024-02-05 17:40 | P.STRESS_ITS ---
Stress Test Stress Test Requesting physician: Anderson Blount Procedure: Exercise Cardiolite stress test General Information: Reason for Stress Test: Dyspnea Cardiac History and Risk Factors: None listed, yet has rosuvastatin, lisinopril, metoprolol, and baby ASA listed as home meds. Resting 12 - Lead Electrocardiogram: Rate & rhythm: Normal sinus at a rate of 68. [place]: Normal T-waves: Normal orientation ST-segments: Normal orientation Stress Test: Protocol: Eber protocol was followed, with injection of Cardiolite once target heart rate was achieved. Exercise capacity: Fair exercise capacity. Total exercise time of 5 minutes 2 seconds reached Eber stage 2 at 2.5MPH, 12% grade, & 7 METs. Blood pressure: Initial: 138/90, Maximum: 186/90 Rate & rhythm: Patient remained in sinus rhythm during the exercise and recovery portions of the study.? The maximum heart rate was 131, which was 90% of the maximum predicted heart rate. ST-segments & T-waves: No significant changes when compared to the baseline EKG. Patient response/symptoms: No reproducible symptoms to chief complaint. Interpretation: Normal exercise stress test without electrocardiographical evidence of ischemia. Asymptomatic of chief complaint. Cardiolite imaging interpretation will be reported separately. Clinical correlation required.?
== END 2024-02-05 08:00 | disposition home or self-care (01) ==
LOC: NM 08:00
PROVIDERS: PCP Family Medicine; Visit Provider Family Medicine
DX: R06.02 Shortness of breath (principal)
CPT/HCPCS: 78452; 93017; A9500

== ENCOUNTER 2024-07-11 07:49 | Outpatient (OUT) | payer MEDICARE, SELFPAY ==
--- OUTSIDE RECORDS SUMMARY | 2024-07-11 07:54 | XMS_ITS | CCD ---
Author Organization [facility] CliniSyil Care Team Providers Care Boilermaker Pipe Fitter Name Role Phone Katharine Mak Unavailable Tavares [...] Medication Allergies] Propensity to adverse reactions (disorder) [facility] Repository Medications Current Medications Medication Drug Class(es) [...] post-coital, # 15 cap(s), Refills(s) 1, Pharmacy: [facility]/pharmacy #[id number], 165, cm, 04/12/22 8:49:00 EDT, Height/Length [...] : DR TAVARES BLOUNT . Admission #: [id number] Family : Order #: [id number] CLICK HERE TO VIEW EXAM RADIOLOGY REPORT [...] Treatments None Family Cancers None LOCATION: [facility] BREAST COMPOSITION: Scattered areas fibroglandular density. [...] M.D. on 08/17/2022 at 15:38 Normal [facility] US KIDNEYS BLADDERon 07-28-2 022 US [...] JENNIFER RENE Date: 2022-03-23 06:52 Normal [facility] UA (CLEAN/CATCH) PROJECT COORDINATOR RN/MICRO I F IND.on 03-08-2022 Bilirubin Ql (U) Negative Normal NEGATIVE [facility] Comment on above: Performed By: #### U RCX #### [facility] [address] [place] [address] Dr. Aimee Villagomez Clarity (U) CLEAR Normal CLEAR [facility] Comment on above: Performed By: #### U RCX #### [facility] [address] [place] [address] Dr. Aimee Villagomez Color (U) LT. YELLOW Normal YELLOW [facility] Comment on above: Performed By: #### U RCX #### [facility] [address] [place] [address] Dr. Aimee Villagomez Glucose Ql (U) Negative Normal NEGATIVE [facility] Comment on above: Performed By: #### U RCX #### [facility] [address] [place] [address] Dr. Aimee Villagomez Hemoglobin Ql (U) Negative Normal NEGATIVE [facility] Comment on above: Performed By: #### U RCX #### [facility] [address] [place] [address] Dr. Aimee Villagomez Ketones Ql (U) Negative Normal NEGATIVE [facility] Comment on above: Performed By: #### U RCX #### [facility] [address] [address] [address] Aimee Villagomez LEUKOCYTES Negative Normal NEGATIVE [facility] Comment on above: Performed By: #### U RCX #### [facility] [address] [place] [address] Dr. Aimee Villagomez Nitrite Ql (U) Negative Normal NEGATIVE [facility] Comment on above: Performed By: #### U RCX #### [facility] [address] [address] [address] Aimee Villagomez pH (U) 7.0 [pH] Normal 5-9 [facility] Comment on above: Performed By: #### U RCX #### [facility] [address] [place] [address] Dr. Aimee Villagomez SPEC GRAVITY 1.010 Normal 1.005-<=1.025 [facility] Comment on above: Performed By: #### U RCX #### [facility] [address] [place] [address] Dr. Aimee Villagomez UA PROTEIN Negative Normal NEGATIVE/ TRACE [facility] Comment on above: Performed By: #### U RCX #### [facility] [address] [place] [address] Dr. Aimee Villagomez UR MICRO IND NOT INDICATED Normal [facility] Comment on above: Performed By: #### U RCX #### [facility] [address] [place] [address] Dr. Aimee Villagomez Urobilinogen Qn (U) 0.2 {Elizabeth'U}/dL Normal 0.2 - 1. 0 [facility] Comment on above: Performed By: #### U RCX #### [facility] [address] [place] [address] Dr. Aimee Villagomez NM STRESS/REST MULTIon 02-02 NM STRESS/REST MULTI Patient: JULIO CÉSAR SEGAL Exam Date: 02/02/2022 : 1950 Gender:F Ordering : DR TAVARES BLOUNT . Admission #: [id number] Family : Order #: [id number] CLICK HERE TO VIEW EXAM RADIOLOGY REPORT [...] Rene MD on 02/03/2022 at 11:56 Normal [facility] ECHOCARDIO M/2D COMPLETEon 0 01-18-2022 ECHOCARDIO M/2D COMPLETE Patient: JULIO CÉSAR SEGAL Exam Date: 01/18/2022 : 1950 Gender:F Ordering : DR TAVARES BLOUNT . Admission #: [id number] Family : Order #: [id number] CLICK HERE TO VIEW EXAM ECHOCARDIOGRAM REPORT [...] M.D. on 01/19/2022 at 13:28 Normal [facility] SARS-CoV2 ANTIBODIES, NUCLEO CAPSIDon 01-12-2022 SARS-CoV-2 (COVID-19) RNA ROZ+probe Ql (Unsp spec) Positive Normal Negative [facility] Comment on above: Result Comment: Resu [...] antibodies specific to the viral spike protein. [employer] offers two test codes that detect viral spike-specific antibodies: 008696 SARS-CoV-2 Semi-Quantitative Total Antibody, Marques and 036947 SARS-CoV-2 Antibody, IgG, Marques (Qualitative). Positive results with this SARS-CoV-2 Antibodies, Nucleocapsid assay suggest recent or previous natural infection with SARS-CoV-2. Performed By: #### C VDABS #### [facility] [address] [place] [address] Dr. Aimee Villagomez BNPon 01-10-2022 Natriuretic peptide B (Bld) [Mass/Vol] 16.0 pg/mL Normal <=900.0 [facility] Comment on above: Performed By: #### U RCX #### [facility] [address] [place] [address] Dr. Aimee Villagomez CBC AUTO DIFFon 01-10-2022 BASO # 0.0 103/ul Normal 0.0-0.1 [facility] Comment on above: Performed By: #### C BC #### [facility] [address] [place] [address] Dr. Aimee Villagomez Basophils/100 WBC (Bld) 0.4 % Normal 0.2-2.0 [facility] Comment on above: Performed By: #### C BC #### [facility] [address] [place] [address] Dr. Aimee Villagomez EO # 0.0 103/ul Normal 0.0-0.7 [facility] Comment on above: Performed By: #### C BC #### [facility] [address] [place] [address] Dr. Aimee Villagomez Eosinophils/100 WBC (Bld) 0.9 % Normal 0.9-7.0 [facility] Comment on above: Performed By: #### C BC #### [facility] [address] [place] [address] Dr. Aimee Villagomez Erythrocyte distribution width (RBC) [Ratio] 12.5 % Normal 11.0-15.0 [facility] Comment on above: Performed By: #### C BC #### [facility] [address] [place] [address] Dr. Aimee Villagomez Hematocrit (Bld) [Volume fraction] 38.9 % Normal 36.0-48.0 [facility] Comment on above: Performed By: #### C BC #### [facility] [address] [place] [address] Dr. Aimee Villagomez Hemoglobin (Bld) [Mass/Vol] 12.7 g/dL Normal 12.0-16.0 [facility] Comment on above: Performed By: #### C BC #### [facility] [address] [place] [address] Dr. Aimee Villagomez IG # 0.06 10e3/ul Critically high 0.00-0.03 [facility] Comment on above: Performed By: #### C BC #### [facility] [address] [place] [address] Dr. Aimee Villagomez IG % 1.3 % Critically high 0.0-0.5 [facility] Comment on above: Performed By: #### C BC #### [facility] [address] [place] [address] Dr. Aimee Villagomez LYMPH # 2.0 103/ul Normal 1.2-3.8 [facility] Comment on above: Performed By: #### C BC #### [facility] [address] [place] [address] Dr. Aimee Villagomez Lymphocytes/100 WBC (Bld) 43.3 % Normal 20.5-60.0 [facility] Comment on above: Performed By: #### C BC #### [facility] [address] [place] [address] Dr. Aimee Villagomez MANUAL DIFF REQ NO Normal [facility] Comment on above: Performed By: #### C BC #### [facility] [address] [place] [address] Dr. Aimee Villagomez MCH (RBC) [Entitic mass] 31.1 pg Normal 26.7-34.0 [facility] Comment on above: Performed By: #### C BC #### [facility] [address] [address] [address] Aimee Villagomez MCHC (RBC) [Mass/Vol] 32.6 g/dL Normal 29.9-35.2 [facility] Comment on above: Performed By: #### C BC #### [facility] [address] [place] [address] Dr. Aimee Villagomez MCV (RBC) [Entitic vol] 95.3 fL Normal 81.0-99.0 [facility] Comment on above: Performed By: #### C BC #### [facility] [address] [place] [address] Dr. Aimee Villagomez MONO # 0.4 103/ul Normal 0.3-0.8 [facility] Comment on above: Performed By: #### C BC #### [facility] [address] [place] [address] Dr. Aimee Villagomez Monocytes/100 WBC (Bld) 9.5 % Normal 1.7-12.0 [facility] Comment on above: Performed By: #### C BC #### [facility] [address] [place] [address] Dr. Aimee Villagomez NEUT # 2.1 103/ul Normal 1.4-6.5 [facility] Comment on above: Performed By: #### C BC #### [facility] [address] [place] [address] Dr. Aimee Villagomez Neutrophils/100 WBC (Bld) 44.6 % Normal 43.0-75.0 [facility] Comment on above: Performed By: #### C BC #### [facility] [address] [place] [address] Dr. Aimee Villagomez Platelet mean volume (Bld) [Entitic vol] 8.9 fL Critically low 9.5-13.5 [facility] Comment on above: Performed By: #### C BC #### [facility] [address] [place] [address] Dr. Aimee Villagomez PLT 298 103/ul Normal 150-450 [facility] Comment on above: Performed By: #### C BC #### [facility] [address] [place] [address] Dr. Aimee Villagomez RBC 4.08 106/ul Critically low 4.20-5.40 [facility] Comment on above: Performed By: #### C BC #### [facility] [address] [address] [address] Aimee Villagomez WBC 4.6 103/ul Normal 4.0-11.0 [facility] Comment on above: Performed By: #### C BC #### [facility] [address] [address] [address] Aimee Villagomez FREE THYROXINE INDEX T7on FTI 2.16 Normal 1.30-4.50 [facility] Comment on above: Performed By: #### U RCX #### [facility] [address] [address] [address] Aimee Villagomez T3U 36.0 % Normal 30.0-39.0 [facility] Comment on above: Performed By: #### U RCX #### [facility] [address] [address] [address] Aimee Villagomez T4 [Mass/Vol] 6.00 ug/dL Normal 4.80-13.[address] [facility] Comment on above: Performed By: #### U RCX #### [facility] [address] [place] [address] Dr. Aimee Villagomez GLYCOHEMOGLOBIN A1Con 2021 ADA RECOMMENDATION SEE BELOW Normal [facility] Comment on above: Result Comment: ADA RECOMMENDED LIMIT 4.0 - 6.0 ADA THERAPEUTIC TARGET < 7.0 ACTION SUGGESTED > 7.0 Performed By: #### A 1C #### [facility] [address] [place] [address] Dr. Aimee Villagomez Glucose [Mass/Vol] 123 mg/dL Normal [facility] Comment on above: Performed By: #### A 1C #### [facility] [address] [place] [address] Dr. Aimee Villagomez HbA1c (Bld) [Mass fraction] 5.9 % Normal 4.5-6.2 [facility] Comment on above: Performed By: #### A 1C #### [facility] [address] [place] [address] Dr. Aimee Villagomez IRONon 01-10-2022 Iron [Mass/Vol] 117.0 ug/dL Normal 50.0-170.0 [facility] Comment on above: Performed By: #### I SIENA #### [facility] [address] [place] [address] Dr. Aimee Villagomez PROF 14(COMP METB)on 022 Albumin [Mass/Vol] 3.9 g/dL Normal 3.4-5.0 [facility] Comment on above: Performed By: #### C MP, BNP, TSH, T7 #### [facility] [address] [place] [address] Dr. Aimee Villagomez Albumin/Globulin [Mass ratio] 1.0 {ratio} Normal [facility] Comment on above: Performed By: #### C MP, BNP, TSH, T7 #### [facility] [address] [place] [address] Dr. Aimee Villagomez ALP [Catalytic activity/Vol] 72 U/L Normal 46-116 [facility] Comment on above: Performed By: #### C MP, BNP, TSH, T7 #### [facility] [address] [place] [address] Dr. Aimee Villagomez ALT [Catalytic activity/Vol] 23 U/L Normal 14-59 [facility] Comment on above: Performed By: #### C MP, BNP, TSH, T7 #### [facility] [address] [place] [address] Dr. Aimee Villagomez Anion gap [Moles/Vol] 11.8 mmol/L Normal [facility] Comment on above: Performed By: #### C MP, BNP, TSH, T7 #### [facility] [address] [place] [address] Dr. Aimee Villagomez AST [Catalytic activity/Vol] 23 U/L Normal 15-37 [facility] Comment on above: Performed By: #### C MP, BNP, TSH, T7 #### [facility] [address] [place] [address] Dr. Aimee Villagomez Bilirubin [Mass/Vol] 0.7 mg/dL Normal 0.2-1.0 [facility] Comment on above: Performed By: #### C MP, BNP, TSH, T7 #### [facility] [address] [address] [address] Aimee Villagomez Calcium [Mass/Vol] 9.3 mg/dL Normal 8.5-10.1 [facility] Comment on above: Performed By: #### C MP, BNP, TSH, T7 #### [facility] [address] [address] [address] Aimee Villagomez Chloride [Moles/Vol] 102 mmol/L Normal 98-107 [facility] Comment on above: Performed By: #### C MP, BNP, TSH, T7 #### [facility] [address] [place] [address] Dr. Aimee Villagomez CO2 [Moles/Vol] 27.6 mmol/L Normal 21.0-32.0 [facility] Comment on above: Performed By: #### C MP, BNP, TSH, T7 #### [facility] [address] [place] [address] Dr. Aimee Villagomez Creatinine [Mass/Vol] 0.98 mg/dL Normal 0.55-1.02 [facility] Comment on above: Performed By: #### C MP, BNP, TSH, T7 #### [facility] [address] [place] [address] Dr. Aimee Villagomez EGFR-AF MONTENEGRIN >60 Normal >=60 [facility] Comment on above: Performed By: #### C MP, BNP, TSH, T7 #### [facility] [address] [place] [address] Dr. Aimee Villagomez EGFR-NON AF MONTENEGRIN 56 mL/min/1.73m2 Critically low >=60 [facility] Comment on above: Performed By: #### C MP, BNP, TSH, T7 #### [facility] [address] [place] [address] Dr. Aimee Villagomez Globulin (S) [Mass/Vol] 3.9 g/dL Normal [facility] Comment on above: Performed By: #### C MP, BNP, TSH, T7 #### [facility] [address] [place] [address] Dr. Aimee Villagomez Glucose [Mass/Vol] 89 mg/dL Normal 74-106 [facility] Comment on above: Performed By: #### C MP, BNP, TSH, T7 #### [facility] [address] [place] [address] Dr. Aimee Villagomez Potassium [Moles/Vol] 4.4 mmol/L Normal 3.5-5.1 [facility] Comment on above: Performed By: #### C MP, BNP, TSH, T7 #### [facility] [address] [place] [address] Dr. Aimee Villagomez Protein [Mass/Vol] 7.8 g/dL Normal 6.4-8.2 [facility] Comment on above: Performed By: #### C MP, BNP, TSH, T7 #### [facility] [address] [place] [address] Dr. Aimee Villagomez Sodium [Moles/Vol] 137 mmol/L Normal 136-145 [facility] Comment on above: Performed By: #### C MP, BNP, TSH, T7 #### [facility] [address] [place] [address] Dr. Aimee Villagomez Urea nitrogen [Mass/Vol] 24.0 mg/dL Critically high 7.0-18.0 [facility] Comment on above: Performed By: #### C MP, BNP, TSH, T7 #### [facility] [address] [place] [address] Dr. iAmee Villagomez Urea nitrogen/Creatinine [Mass ratio] 24.5 mg/mg Normal [facility] Comment on above: Performed By: #### C MP, BNP, TSH, T7 #### [facility] [address] [place] [address] Dr. Aimee Villagomez TSHon 01-10-2022 TSH 2.915 uIU/mL Normal 0.358-3.[address] [facility] Comment on above: Performed By: #### U RCX #### [facility] [address] [place] [address] Dr. Aimee Villagomez TSH RANGE SEE BELOW Normal [facility] Comment on above: Result Comment: <0.3 4 UIU/ml HYPERTHYROID 0.34-5.60 UIU/ml EUTHYROID >5.60 UIU/ml HYPOTHYROID Performed By: #### U RCX #### [facility] [address] [place] [address] Dr. Aimee Villagomez CULTURE URINEon 10-10-2021 CULTURE URINE Culture Observations : VERY LIGHT GROWTH OF MIXED GENITAL EDUARDO. NO POTENTIAL PATHOGENS SEEN. Normal [facility] Comment on above: Performed By: #### U RCX #### [facility] [address] [place] [address] Dr. Aimee Villagomez UA RANDOM W/MICROSCOPICon BACTERIA SMALL Abnormal NONE SEEN [facility] Comment on above: Performed By: #### U AMIC #### [facility] [address] [place] [address] Dr. Aimee Villagomez Bilirubin Ql (U) Negative Normal NEGATIVE [facility] Comment on above: Performed By: #### U AMIC #### [facility] [address] [place] [address] Dr. Aimee Villagomez CAST NONE SEEN Normal NONE SEEN [facility] Comment on above: Performed By: #### U AMIC #### [facility] [address] [place] [address] Dr. Aimee Villagomez Clarity (U) CLEAR Normal CLEAR [facility] Comment on above: Performed By: #### U AMIC #### [facility] [address] [place] [address] Dr. Aimee Villagomez Color (U) LT. YELLOW Normal YELLOW [facility] Comment on above: Performed By: #### U AMIC #### [facility] [address] [place] [address] Dr. Aimee Villagomez Crystals LM Nom (Urine sed) NONE SEEN Normal NONE SEEN [facility] Comment on above: Performed By: #### U AMIC #### [facility] [address] [place] [address] Dr. Aimee Villagomez Epithelial cells LM Ql (Urine sed) RARE Normal NONE SEEN /RARE [facility] Comment on above: Performed By: #### U AMIC #### [facility] [address] [address] [address] Aimee Villagomez Glucose Ql (U) Negative Normal NEGATIVE [facility] Comment on above: Performed By: #### U AMIC #### [facility] [address] [address] [address] Aimee Villagomez Hemoglobin Ql (U) LARGE Abnormal NEGATIVE [facility] Comment on above: Performed By: #### U AMIC #### [facility] [address] [address] [address] Aimee Villagomez Ketones Ql (U) Negative Normal NEGATIVE [facility] Comment on above: Performed By: #### U AMIC #### [facility] [address] [address] [address] Aimee Villagomez LEUKOCYTES SMALL Abnormal NEGATIVE [facility] Comment on above: Performed By: #### U AMIC #### [facility] [address] [address] [address] Aimee Villagomez MUCOUS NONE SEEN Normal NONE SEEN [facility] Comment on above: Performed By: #### U AMIC #### [facility] [address] [address] [address] Aimee Villagomez Nitrite Ql (U) Negative Normal NEGATIVE [facility] Comment on above: Performed By: #### U AMIC #### [facility] [address] [address] [address] Aimee Villagomez pH (U) 6.0 [pH] Normal 5-9 [facility] Comment on above: Performed By: #### U AMIC #### [facility] [address] [address] [address] Aimee Villagomez RBC 10-20 Abnormal 0-2 [facility] Comment on above: Performed By: #### U AMIC #### [facility] [address] [address] [address] Aimee Villagomez SPEC GRAVITY 1.015 Normal 1.005-<=1.025 [facility] Comment on above: Performed By: #### U AMIC #### [facility] [address] [address] [address] Aimee Villagomez UA PROTEIN 30 mg/dl Abnormal NEGATIVE/ TRACE [facility] Comment on above: Performed By: #### U AMIC #### [facility] [address] [address] [address] Aimee Villagomez Urobilinogen Qn (U) 0.2 {Elizabeth'U}/dL Normal 0.2 - 1. 0 [facility] Comment on above: Performed By: #### U AMIC #### [facility] [address] [address] [address] Aimee Villagomez WBC 10-20 Abnormal NONE SEEN [facility] Comment on above: Performed By: #### U AMIC #### [facility] [facility] [address] [address] [address] Aimee Villagomez Urine Cultureon 09-17-2021 Bacteria identified Cx Nom (U) Reason for Exam Frequency of urination Urine ORGANISM: Escherichia coli (O:ESCCOL) Roslyn Count 100,000 Aerobic LYNDSEY Charge (NUC86) ---- [...] RESISTANT TO ALL B-LACTAM DRUGS. PERFORMED BY: [address] [address] PATHOLOGIST HIDE AND SKIN FLESHING MACHINE OPERATOR EMERITA CISNEROS M.D. [facility] Comment on above: Performed By: #### C UU #### [facility] [address] [place], [place] [id number] [facility] Urine Cultureon 08-19-2021 Bacteria identified Cx Nom (U) Reason for Exam Dysuria Urine ORGANISM: Strep. agalactiae Grp B (O:B) Roslyn Count 15,000 PERFORMED BY: [address] [address] PATHOLOGIST HIDE AND SKIN FLESHING MACHINE OPERATOR EMERITA CISNEROS M.D. [facility] Comment on above: Performed By: #### C UU #### [address] [id number] [facility] Vital Signs Date Time Vital Sign Value Performing Clinician Facility 04-12-2022 08:44-0400 Blood Pressure Location EMILIANO HUTSON [facility] 04-12-2022 08:44-0400 Diastolic blood pressure 72 mm[Hg] EMILIANO HUTSON [facility] 04-12-2022 08:44-0400 Heart rate 66 /min EMILIANO HUTSON [facility] 04-12-2022 08:44-0400 Systolic blood pressure 126 mm[Hg] EMILIANO HUTSON [facility] 08-19-2021 10:50-0500 Body height 165.1 cm Katharine Mak Other [facility] Other 08-19-2021 10:50-0500 Body mass index (BMI) [Ratio] 25.96 kg/m2 Katharine Mak Other [facility] Other 08-19-2021 10:50-0500 Body temperature 96.8 [degF] Katharine Gordonmond Other [facility] Other 08-19-2021 10:50-0500 Body weight 70.76 kg Katharine Gordonmond Other [facility] Other 08-19-2021 10:50-0500 Diastolic blood pressure 91 mm[Hg] Katharine Gordonmond Other [facility] Other 08-19-2021 10:50-0500 Respiratory rate 18 /min Katharine Mak Other [facility] Other 08-19-2021 10:50-0500 SaO2% (BldA) [Mass fraction] 99 % Katharine Mak Other [facility] Other 08-19-2021 10:50-0500 Systolic blood pressure 148 mm[Hg] Katharine Gordonmond Other [facility] Other Encounters Encounter Date Encounter Type Care Provider Facility Start: 04-25-2023 End: 04-26-2023 ambulatory EMILIANO HUTSON Facility:[facility] Start: 04-25-2023 End: 04-25-2023 Patient encounter procedure EMILIANO HUTSON [facility] Start: 10-11-2022 ambulatory EMILIANO HUTSON Facili ty:[facility] Start: 08-17-2022 End: 08-18-[address] TAVARES BLOUNT Facility:[facility] Start: 04-12-2022 End: 04-12-2022 Patient encounter procedure EMILIANO HUTSON [facility] Start: 03-27-[address] CARMEN MANN Fac ility:[facility] Start: 03-22-2022 End: 03-23-[address] TAVARES BLOUNT Facility:[facility] Start: 03-08-2022 End: 03-09-[address] TAVARES BLOUNT Facility:[facility] Start: 02-02-2022 End: 02-03-[address] TAVARES BLOUNT Facility:[facility] Start: 01-18-2022 End: 01-19-[address] TAVARES BLOUNT Facility:[facility] Start: 01-13-2022 Encounter for antibo dy response examination DR TAVARES BLOUNT [facility] Start: 01-10-2022 End: 01-11-[address] TAVARES BLOUNT Facility:[facility] Start: 12-01-[address] TAVARES BLOUNT Facility :[facility] Start: 10-24-[address] Jennifer Rene Facility: [facility] Start: 10-10-2021 End: 10-11-[address] TAVARES BLOUNT Facility:[facility] Start: 08-19-2021 End: 08-19-2021 ambulatory Katharine Mak Other [facility] Other Start: 08-19-2021 Office outpatient ne w 30 minutes Katharine Mak [facility] Procedures Date Procedure Procedure Detail Performing Clinician Abdominal hysterectomy RON HUTSON Colonoscopy EMILIANO HUTSON Payers Date Payer Category Payer Medicare [id number] [id number] 1961 Medicare [id number] 1961 Self-pay [id number] 1950 Unknown [id number] 2.16.84 [id number] 1948 Unknown [id number] 2.16.84 [id number] 1948 Unknown [id number] 2.16.84 [id number] 1948 Unknown [id number] 2.16.84 [id number] 1948 Unknown [id number] 2.16.84 [id number] 1948 Unknown [id number] 2.16.84 [id number] 1948 Unknown [id number] 2.16.84 [id number] 1948 Unknown [id number] 2.16.84 [id number] 1948 Unknown [id number] 2.16.84 [id number] 1948 Unknown [id number] 2.16.84 [id number] 1948 Unknown [id number] 2.16.8 [id number] 1948 Unknown [id number] 2.16.8 [id number] Social History Date Type Detail Facility Sex Assigned At [facility] [employer] Other No Smoking Status Entered [facility] Tobacco smoking status No Smoking Status [facility] Status Date Assessment Result Facility 04-12-2022 N/A [facility] Discharge instructions 04-12-2022 Note Date & Type Note Facility 04-12-2022 Hospital Discharg e instructions Patient Education 04/12/2022 10:10:59 Kidney Stones, Radt-de-Dwjt Kidney Stones Kidney stones are rock-like masses [...] Follow these instructions at home: Medicines Take depi-kgl-bmwdwpi and prescription medicines only as told by [...] 01/29/2009 Document Revised: 12/30/2019 Document Reviewed: 12/30/2019 [employer] Patient Education 2019 [employer]. Follow Up Care 03/24/2022 15:32:49 With:EMILIANO HUTSON PA-C, URL Address: [address] [place] [address] Business (1) When:6 months [facility] Evaluation note 08-19-2021 Note Date [...] days. Jul, Hematuria, unspecified (ICD-10 - R31.9) [facility] Other Evaluation + Plan note Note Date & Type Note Facility Evaluation + Plan note Future Appointments Appointment Date:10/11/2022 01:00:00 PM Scheduled Provider:EMILIANO HUTSON PA-C Location:[facility] Appointment Type:URO Office Visit [facility] History general Narrative - Reported Note Date & Type Note Facility History general Narrative - Reported Type Medical History hypertension Medical History hypercholesterolemia Surgical History HYSTERECTOMY Hospitalization History see above [facility] Other Hospital course Narrative Note Date & Type Note Facility Hospital course Narrative No data available for this section [facility] Hospital Discharge instructions Note Date & Type Note Facility Hospital Discharge instructions No data available for this section [facility] Progress note Note Date & Type Note Facility Progress note No data available for this section [facility] Summary Purpose Family History No Family History Records FoundNo Family History Records FoundNo Family History Records Found Advance Directives No Advanced Directives Records FoundNo Advanced Directives Records FoundNo Advanced Directives Records Found Additional Source Comments INFORMATION SOURCE (unrecogn ized section and content) DATE CREATED AUTHOR 09/19/2021 [facility] DATE CREATED AUTHOR AUTHOR'S ORGANIZ ATION 08/23/2022 [facility] DATE CREATED AUTHOR AUTHOR'S ORGANIZ ATION 04/27/2023 [facility] REASON FOR VISIT (unrecogniz ed section and content) DYSURIA Care Team (unrecognized sect ion and content) Personnel Name: Tavares Blount MD Address: [address] [place] [address] Personnel Name: Tavares Blount MD Address: Address: [address] [place] [address] FOR RECORDS PERTAINING TO PATIENTS WHO ARE [...] BE BASED ON THE PRIMARY CLINICAL RECORDS. [facility] Verified Identity [facility]. provides no warranty or guarantee of the accuracy or completeness of information in this document.
[2024-07-11 08:20] LABS: Basophils Percent Auto 0.6 % (0.2-2.0); Eosinophils Absolute Auto 0.1 10^3/uL (0.0-0.7); Eosinophils Percent Auto 0.9 % (0.9-7.0); Hematocrit 39.4 % (36.0-48.0); Immature Granulocytes Abs Auto 0.08 10^3/uL (0.00-0.03); Immature Granulocytes Pct Auto 1.5 % (0.0-0.5); Lymphocytes Percent Auto 36.6 % (20.5-60.0); Mean Corpuscular Hemoglobin 31.3 pg (26.7-34.0); Mean Corpuscular Volume 94.9 fL (81.0-99.0); Mean Platelet Volume 9.9 fL (9.5-13.5); Monocytes Absolute Auto 0.5 10^3/uL (0.3-0.8); Monocytes Percent Auto 9.5 % (1.7-12.0); Neutrophils Absolute Auto 2.7 10^3/uL (1.4-6.5); Neutrophils Percent Auto 50.9 % (43.0-75.0); Platelet Count 227 10^3/uL (150-450); Red Blood Count 4.15 10^6/uL (4.20-5.40); Red Cell Distribution Width 12.9 % (11.0-15.0); White Blood Count 5.4 10^3/uL (4.0-11.0)
[2024-07-11 08:36] LABS: Estimated Average Glucose 128 mg/dL; Glycohemoglobin A1C 6.1 % (4.5-6.2)
[2024-07-11 08:57] LABS: Alanine Aminotransferase 28 U/L (14-59); Albumin Level 3.7 g/dL (3.4-5.0); Alkaline Phosphatase 74 U/L (46-116); Anion Gap 12.2; Aspartate Amino Transferase 16 U/L (15-37); BUN Creatinine Ratio 19.2; Bilirubin Total 0.7 mg/dL (0.2-1.0); Calcium 9.3 mg/dL (8.5-10.1); Carbon Dioxide 29.8 mmol/L (21.0-32.0); Chloride 107 mmol/L (98-107); Chol HDL Ratio 4.1; Cholesterol 201 mg/dL (<=200); Estimated GFR (African America >60 (>=60 mL/min/1.73m^2); Estimated GFR (Non-African Ame >60 (>=60 mL/min/1.73m^2); Free T3 2.34 pg/mL (2.18-3.98); Globulin 3.8 g/dL; Glucose 90 mg/dL (74-106); HDL Cholesterol 49 mg/dL (40-60); Sodium 145 mmol/L (136-145); Thyroid Stimulating Hormone 2.988 uIU/mL (0.358-3.740); Total Protein 7.5 g/dL (6.4-8.2); Triglycerides 191 mg/dL (<=150); VLDL CHOLESTEROL 38.2 mg/dL
== END 2024-07-11 07:50 | disposition home or self-care (01) ==
LOC: LAB 07:51
PROVIDERS: PCP Family Medicine; Visit Provider Family Medicine
DX: R30.0 Dysuria (principal); I10 Essential (primary) hypertension; E78.00 Pure hypercholesterolemia, unspecified; K21.9 Gastro-esophageal reflux disease without esophagitis; R53.83 Other fatigue; R73.09 Other abnormal glucose; D64.9 Anemia, unspecified; E03.9 Hypothyroidism, unspecified; E55.9 Vitamin D deficiency, unspecified
CPT/HCPCS: 36415; 80053; 80061; 82306; 83036; 83540; 84436; 84443; 84481; 85025

== ENCOUNTER 2024-07-17 14:25 | Outpatient (OUT) | payer MEDICARE, SELFPAY ==
--- NOTE | 2024-07-17 14:29 | MM_ITS ---
Patient Name: JULIO CÉSAR SEGAL MR#: [id number] : 1950 Exam Date: 07/17/2024 Ordering Doctor: DR Anderson Blount . RADIOLOGY REPORT PROCEDURE: MM TOMOSYNTHESIS SCREENING BI COMPARISON: MG MAMM SCREEN 3D SARITA CAD, 08/17/2022. MG MAMM SCREEN SARITA W CAD, 06/04/2020. MG MAMM SCREEN SARITA W CAD, 11/15/2016. MG MAMM SARITA SCRN W CAD DIG, 06/12/2014. INDICATIONS: Screening Calculator Name NCI Breast Cancer Risk Assessment Tool 5 Year Breast Cancer Risk 1.20% Lifetime Breast Cancer Risk 2.50% Personal Breast Cancer No Personal Ovarian Cancer No Treatments None Family Cancers None LOCATION: [facility] BREAST COMPOSITION: There are scattered areas of fibroglandular density. FINDINGS: DIAGNOSTIC CATEGORY 2--BENIGN FINDING: RIGHT BREAST: No significant suspicious finding. Scattered benign-appearing calcifications are present. Scattered benign-appearing lymph nodes are present. No significant change has occurred. LEFT BREAST: No significant suspicious finding. Scattered benign-appearing calcifications are present. Scattered benign-appearing lymph nodes are present. No significant change has occurred. RECOMMENDATIONS: ROUTINE MAMMOGRAM AND CLINICAL EVALUATION IN 12 MONTHS. PLEASE NOTE: A NORMAL MAMMOGRAM DOES NOT EXCLUDE THE POSSIBILITY OF BREAST CANCER. A CLINICALLY SUSPICIOUS PALPABLE LUMP SHOULD BE BIOPSIED. Dictated by: Marcel Hinkle M.D. on 07/17/2024 at 15:57 Approved by: Marcel Hinkle M.D. on 07/17/2024 at 15:58
== END 2024-07-17 14:26 | disposition home or self-care (01) ==
LOC: MAMMO 14:25
PROVIDERS: PCP Family Medicine; Visit Provider Family Medicine
DX: Z12.31 Encounter for screening mammogram for malignant neoplasm of breast (principal); R30.0 Dysuria
CPT/HCPCS: 77063; 77067

== ENCOUNTER 2025-02-10 08:26 | Outpatient (OUT) | payer MEDICARE, SELFPAY ==
--- OUTSIDE RECORDS SUMMARY | 2025-01-07 12:00 | XMS_ITS ---
Author Organization [facility] in [place] Address [address] [place] [address] Care Team Providers Care Ticket Collector Or Usher Name Role Phone Clifton Blount Primary Care Provider [phone] Allergies No Known Allergies REASON FOR VISIT lightheaded Medications Medication SIG (Take, Route, Frequency, Duration) Notes Start Date End Date Status Nitrofurantoin Macrocrystal 50 MG 1 capsules at bedtime with food or milk Orally Once a day for 30 days PRN/ Urologist 04/03/2024 Active Omeprazole 40 MG TAKE 1 CAPSULE DAILY Orally Once a day for 90 days Active Rosuvastatin Calcium 5 mg TAKE 1 TABLET DAILY for 90 days Active Lisinopril 40 MG 1 tablet Orally Once a day for 90 days Active Cholecalciferol 50 MCG (1999) 1 capsule Orally Once a day Active Social History Tobacco Use: Social History Observation Description Date Details (start date - stop date) Never Smoker NA - NA Tobacco Use/Smoking Question Answer Notes Patient is a nonsmoker Vital Signs Weight 153.0 lbs 01/07/2025 Height 65 in 01/07/2025 Blood pressure systolic 102 mm Hg 01/08/20 25 Blood pressure diastolic 62 mm Hg 025 BMI 25.46 kg/m2 01/07/2025 Encounters Encounter Location Date Provider Diagnosis [facility] [address] [place] [address] 01/07/2025 Clifton Loganrory Hypertension I10 Assessments Encounter Date Diagnosis (ICD Code) Assessment Notes Treatment Notes Treatment Clinical Notes Section Notes 01/07/2025 Hypertension (ICD-10 - I10) Plan Of Treatment No Information Progress Notes * Inez SEGALneDOB: 9 (74 yo F)Acc No.[id number]:01/07/2025 Progress Note Patient: Edwina CHILEL Provider: Anselmo Blount ([facility])MD :1950 A ge:74 Y S ex:Female Date:01/07/2025 Address:[address] [place] [address] [address], [id number] Check In:03:47 PM ESTCheck O ut:05:10 PM EST Subjective: * Chief Complaints: * L ightheaded * HPI: G eneral: BP running low - since change in BP. * ROS: E ENT: hearing changes d enies. v isual changes d enies.?non-healing mouth sores d enies. s wollen glands or neck lumps d enies. h oarseness d enies. s ore throat d enies. d ifficulty swallowing d enies. n ose bleeds d enies. n caroline congestion d enies. e ar ache d enies. e ar discharge?denies. r inging in ears d enies. l ight sensitivity d enies. e ye pain d enies. b lurring d enies. e ye irritation d enies. d ouble vision d enies.?vision loss d enies. G eneral/Constitutional: Sweats: D enies. F atigue d enies. S leep problems d enies. A norexia d enies. M alaise d enies. W eight loss d enies.?Fatigue or Weakness d enies. F ever or Chills d enies. C ardiovascular: Shortness of Breath w/lying flat d enies. L ightheadedness/dizziness d enies. C hest tightness/ heavy pressure d enies. S welling of legs, ankles, or feet d enies. W aking up with shortness of breath d enies. C hest pain denies. P alpitations d enies. W eight gain d enies. R espiratory: Chronic or frequent cough d enies. C oughing up blood?denies. D ifficulty breathing d enies. P roductive cough d enies. S noring?denies. S hortness of breath that awakens from sleep (PND) d enies. C hest pain d enies. S putum production d enies. W heezing d enies. M usculoskeletal: Joint pain d enies. J oint Fluid d enies. B ack pain d enies. K nee pain d enies. N silvana pain d enies. J oint Stiffness d enies. M uscle cramps d enies. W eakness of muscles d enies. A rthritis d enies. M uscle aches d enies. P ain in shoulder(s) d enies. S wollen joints d enies. * Active Problem List E78.00 Hypercholesteremia Modified On:07/04/2023/U Status:confirmed I10 Hypertension Modified On:07/04/2023/U Status:confirmed K21.9 GERD (gastroesophage al reflux disease) Modified On:07/09/2024/U Status:confirmed * Medical History: * Surgical History: H YSTERECTOMY TOTAL * Hospitalization/Major Diagno stic Procedure: D enies Past Hospitalization * Family History: F ather: 40 yrs, alcoholism. M other: , Alzheimers. S ister(s): Hypercholesterolemia, migraines, diagnosed with Unspecified essential hypertension. D yossier(s): alive, breast cancer, diagnosed with Other malignant neoplasm of unspecified site. B rafiqer(s): diagnosed with Diabetes mellitus without mention of complication, type II or unspecified type, not stated as uncontrolled. 2 brother(s) , 2 sister(s) . 5 daughter(s) - healthy. . Oldest brother One sister . * Social History: T obacco Use: T obacco Use/Smoking P atient is a n onsmoker * Medications: T akingCholecalciferol 50 MCG (1999) Capsule 1 capsule Orally Once a day Lisinopril 40 MG Tablet 1 tablet Orally Once a day Nitrofurantoin Macrocrystal 50 MG Capsule 1 capsules at bedtime with food or milk Orally Once a day , Notes to Pharmacist: PRN/ UrologistOmeprazole 40 MG Capsule Delayed Release TAKE 1 CAPSULE DAILY Orally Once a day Rosuvastatin Calcium 5 mg Tablet TAKE 1 TABLET DAILY Taking Cholecalciferol 50 MCG (2000 UT) Capsule 1 capsule Orally Once a day Taking Lisinopril 40 MG Tablet 1 tablet Orally Once a day Taking Nitrofurantoin Macrocrystal 50 MG Capsule 1 capsules at bedtime with food or milk Orally Once a day , Notes to Pharmacist: PRN/ UrologistTaking Omeprazole 40 MG Capsule Delayed Release TAKE 1 CAPSULE DAILY Orally Once a day Taking Rosuvastatin Calcium 5 mg Tablet TAKE 1 TABLET DAILY DiscontinuedCefdinir 300 MG Capsule 2 capsule Orally once a day Metoprolol Succinate ER 50 MG Tablet Extended Release 24 Hour 1 tablet Orally Once a day Pyridium(Phenazopyridine HCl) 200 MG Tablet 1 tablets after meals Orally Three times a day Medication List reviewed and reconciled with the patientDiscontinued Cefdinir 300 MG Capsule 2 capsule Orally once a day Discontinued Metoprolol Succinate ER 50 MG Tablet Extended Release 24 Hour 1 tablet Orally Once a day Discontinued Pyridium(Phenazopyridine HCl) 200 MG Tablet 1 tablets after meals Orally Three times a day Medication List reviewed and reconciled with the patient * Allergies: N .K.D.A.no[Allergies Verified] Objective: * Vitals: W t:153.0lbs, Ht: 65 in, BP:102/62mm Hg, BMI:25.46Index, Ht-cm: 165.1 cm, Wt-k.4 kg. * Examination: P hysical Exam: GENERAL: w ell developed, well nourished, in no acute distress. HEAD: n ormocephalic/atraumatic. EYES: p upils equal, round and reactive to light, conjunctivae and sclerae normal. EARS: n o deformity or lesion of external ear, canals and TM appear normal bilaterally, TM's intact, not inflamed with normal light reflex, hearing grossly normal to conversational speech. NOSE: n o deformity, discharge, inflammation, or lesions.? MOUTH: m ucous membranes moist, normal oropharynx and posterior pharynx without lesions or exudates, tongue normal, dentition normal. NECK: n silvana supple, no masses or palpable cervical nodes, trachea midline, thyroid without nodules, masses, tenderness, or enlargement. CHEST: n o chest wall deformity, no chest wall tenderness.? LUNGS: n ormal respiratory effort and clear to auscultation, no wheezes, rales, or rhonchi, good air exchange. CARDIO: r egular rate and rhythm, normal S1 and S2, nor murmur, rub, or gallop. PULSES: n ormal capillary refill. ABDOMEN: s oft, non-distended, non-tender, no masses. MUSCULOSKELETAL: n o deformity or scoliosis noted, normal range of motion, joints normal, no erythema, edema, effusion, or ecchymosis. EXTREMITY: n o clubbing, cyanosis, edema, or deformity with normal ROM in both upper and lower bilateral extremities. NEUROLOGIC: g rossly normal. SKIN: n o rashes, ulcerations, or suspicious lesions. LYMPH NODES: n o cervical adenopathy, nodes normal. MENTAL STATUS: a lert and oriented x3, normal mood and affect. Assessment: * Assessment: 1. H ypertension - I10 (Primary) Plan: * Treatment: * Procedure Codes: * * Sign off status: Completed Visit Status: C HK (Check Out) true * Provider: Anselmo Blount ([facility])MD Date: 0 01/07/2025 Generated for Printi ng/Famelving/eTransmitting on: 0 02/10/2025 08:33 AM EDT History and Physical Notes * HPI (History of Present Illness) Category Sub-Category Detail Notes Category Not es General BP running low - since change in BP Examination Category Sub-Category Detail Notes Category Not es Physical Exam GENERAL: well developed, well nourished, in no acute distress HEAD: normocephalic/atraum atic EYES: pupils equal, round and reactive to light, conjunctivae and sclerae normal EARS: no deformity or lesi on of external ear, canals and TM appear normal bilaterally, TM's intact, not inflamed with normal light reflex, hearing grossly normal to conversational speech NOSE: no deformity, discha rge, inflammation, or lesions MOUTH: mucous membranes neal st, normal oropharynx and posterior pharynx without lesions or exudates, tongue normal, dentition normal NECK: neck supple, no mass es or palpable cervical nodes, trachea midline, thyroid without nodules, masses, tenderness, or enlargement CHEST: no chest wall deform ity, no chest wall tenderness LUNGS: normal respiratory e ffort and clear to auscultation, no wheezes, rales, or rhonchi, good air exchange CARDIO: regular rate and rhy thm, normal S1 and S2, nor murmur, rub, or gallop PULSES: normal capillary ref ill ABDOMEN: soft, non-distended, non-tender, no masses RECTAL: MUSCULOSKELETAL: no deformity or scol iosis noted, normal range of motion, joints normal, no erythema, edema, effusion, or ecchymosis EXTREMITY: no clubbing, cyanosi s, edema, or deformity with normal ROM in both upper and lower bilateral extremities NEUROLOGIC: grossly normal SKIN: no rashes, ulceratio ns, or suspicious lesions LYMPH NODES: no cervical adenopat hy, nodes normal MENTAL STATUS: alert and oriented x 3, normal mood and affect
--- OUTSIDE RECORDS SUMMARY | 2025-01-12 07:15 | XMS_ITS ---
Author Organization [facility] in [place] Address [address] [place] [address] Care Team Providers Care Patient Relations Manager Name Role Phone Clifton Blount Primary Care Provider REASON FOR VISIT bp check Encounters Encounter Location Date Provider [facility] [address] [place] [facility] [place] [address] 01/12/2025 Clifton Blount Plan Of Treatment No Information Progress Notes * MAHESHANALIA InezneDOB: 9 (74 yo F)Acc No.[id number]:01/12/2025 UNLOCKED PROGRESS NOTE BP Check Patient: Edwina CHILEL Provider: Anselmo Blount MD ([facility]) :1950 A ge:74 Y S ex:Female Date:01/12/2025 Address:[address] [place], [id number] Check In:11:18 AM ESTCheck O ut:11:22 AM EST Subjective: * Chief Complaints: * 1 . Bp check. * Medical History: Objective: * Vitals: Assessment: Plan: * Treatment: * * Electronic signature of Clifton Blount MD, [phone] on 02/10/2025 at 08:34 AM EDT Sign off status: Pending Visit Status: C HK (Check Out) * Provider: Anselmo Blount MD ([facility]) Date: 01/12/2025 Generated for Leon brunson/German/Ivon on: 0 02/10/2025 08:34 AM EDT
--- OUTSIDE RECORDS SUMMARY | 2025-01-28 10:15 | XMS_ITS ---
Author Organization [facility] in [place] Address [address] [place] [address] Care Team Providers Care Mapping Analyst Name Role Phone Clifton Blount Primary Care Provider Allergies No Known Allergies REASON FOR VISIT Low Blood Pressure Medications Medication SIG (Take, Route, Frequency, Duration) Notes Start Date End Date Status Lisinopril 20 MG 1 tablet Orally Once a day for 90 days Active Cholecalciferol 50 MCG (1999) 1 capsule Orally Once a day Active Omeprazole 40 MG TAKE 1 CAPSULE DAILY Orally Once a day for 90 days Active Nitrofurantoin Macrocrystal 50 MG 1 capsules at bedtime with food or milk Orally Once a day for 30 days PRN/ Urologist 04/03/2024 Active Rosuvastatin Calcium 5 mg TAKE 1 TABLET DAILY for 90 days Active Social History Tobacco Use: Social History Observation Description Date Details (start date - stop date) Never Smoker NA - NA Tobacco Use/Smoking Question Answer Notes Patient is a nonsmoker AUDIT-C (Standard) Question Answer Notes Did you have a drink containing alcohol in the p ast year? No Points 0 Interpretation Negative Vital Signs Weight 151.6 lbs 01/28/2025 Height 65 in 01/28/2025 Blood pressure systolic 98 mm Hg 01/29/20 25 Blood pressure diastolic 60 mm Hg 025 BMI 25.22 kg/m2 01/28/2025 Encounters Encounter Location Date Provider Diagnosis [facility] [address] [facility] [place] [address] 01/28/2025 Clifton Blount Hypertension I10 Assessments Encounter Date Diagnosis (ICD Code) Assessment Notes Treatment Notes Treatment Clinical Notes Section Notes 01/28/2025 Hypertension (ICD-10 - I10) Plan Of Treatment Medication Medication Name Sig Start Date Stop Date Notes Lisinopril 20 MG 1 tablet Orally Once a day for 90 days Pending Test Test Name Order Date CBC AUTO DIFF 01/28/2025 PROF 14(COMP METB) 01/28/2025 THYROID PANEL (T4/TSH/FREE T3) Progress Notes * Geovanna SEGALOB: 9 (74 yo F)Acc No.[id number]:01/28/2025 Progress Note Patient: Edwina CHILEL Provider: Anselmo Blount ([facility])MD :1950 A ge:74 Y S ex:Female Date:01/28/2025 Address:[address] [place], [place] [address], [id number] Check In:02:12 PM ESTCheck O ut:03:09 PM EST Subjective: * Chief Complaints: * L ow Blood Pressure * HPI: G eneral: Gettng light headed spells - BP 90's. * ROS: E ENT: hearing changes d [...] * Active Problem List E78.00 Hypercholesteremia Modified On:07/04/2023W/U Status:confirmed I10 Hypertension Modified On:07/04/2023/U Status:confirmed K21.9 [...] Use/Smoking P atient is a n onsmoker D rug/Alcohol: A DANIE-C (Standard) D id you have a drink containing alcohol in the past year? N o P oints 0 I nterpretation N egative * Medications: T akingCholecalciferol 50 MCG (1999) [...] 5 mg Tablet TAKE 1 TABLET DAILY Medication List reviewed and reconciled with the patientTaking Cholecalciferol 50 MCG (1999) Capsule 1 capsule Orally [...] 5 mg Tablet TAKE 1 TABLET DAILY Medication List reviewed and reconciled with the patient * Allergies: N .K.D.A.no[Allergies Verified] Objective: * Vitals: W t:151.6lbs, Ht: 65 in, BP:98/60mm Hg, BMI:25.22Index, Ht-cm: 165.1 cm, Wt-k.77 kg. * Examination: P hysical Exam: GENERAL: [...] Plan: * Treatment: * Procedure Codes: * Preventive Medicine: Screenings/Counseling: B CA ACTION PLAN Above Normal BMI Follow-up D ietary management education, guidance, and counseling * * Sign off status: Completed Visit Status: C HK (Check Out) true * Provider: Anselmo Blount ([facility])MD Date: 0 01/28/2025 Generated for Printi ng/Faxing/eTransmitting on: 0 02/10/2025 08:34 AM EDT History and Physical Notes * HPI (History of Present Illness) Category Sub-Category Detail Notes Category Not es General Gettng light he aded spells - BP 90's Examination Category Sub-Category Detail Notes Category Not [...]
--- OUTSIDE RECORDS SUMMARY | 2025-02-10 08:33 | XMS_ITS | Clinical Summary ---
Author Organization [facility] Address [address] [address] Care Team Providers Care Optical Store Manager Name Role Phone Unavailable Primary Care Provider Unavailabl e Social History Tobacco Use Types Packs/Day Years Used Date Smoking Tobacco: Never Assessed [place] Safety & Environment Answer Date Rec orded Fear of Current or Ex-Partner Not on file Emotionally Abused Not on file 10/18/2023 Physically Abused Not on file 10/18/2023 Sexually Abused Not on file 10/18/2023 Physically or Sexually Abused Not on file Comments Unknown Sex and Gender Information Value Date Recorded Sex Assigned at Not on file Legal Sex Female 12:45 AM EDT Gender Identity Not on file Sexual Orientation Not on file Last Filed Vital Signs Vital Sign Reading Time Taken Comments Blood Pressure 149/89 03/27/2022 10:26 AM EDT Pulse - - Temperature - - Respiratory Rate - - Oxygen Saturation 95% 03/27/2022 10:25 AM EDT Inhaled Oxygen Concentration - - Weight 67.6 kg (149 lb) 03/27/2022 10:21 AM EDT Height 165.1 cm (5' 5 ) 03/27/2022 10:24 AM EDT Body Mass Index 24.79 03/27/2022 10:21 AM EDT Plan of Treatment Health Maintenance Due Date Last Done Comments Depression Screening 1960 Adult Tetanus 1970 Pneumococcal Vaccine: 50+ Years (1 of 1 - PCV) 1998 Zoster Vaccines (1 of 2) 1998 Fall Risk Screening 2013 COVID-19 Vaccine (2 - 2023-2 5 season) 2024 11/01/2020 Influenza Vaccine (Season Ended) 2025 07/13/2022, 06/01/2021, 06/01/2020 HIB Vaccines Aged Out No longer eligi ble based on patient's age to complete this topic HPV Vaccines Aged Out No longer eligi ble based on patient's age to complete this topic IPV Vaccines Aged Out No longer eligi ble based on patient's age to complete this topic Meningococcal B Vaccine Aged Out No l onger eligible based on patient's age to complete this topic Meningococcal Vaccine Aged Out No kervin asim eligible based on patient's age to complete this topic Rotavirus Vaccines Aged Out No longer eligible based on patient's age to complete this topic
--- OUTSIDE RECORDS SUMMARY | 2025-02-10 08:34 | XMS_ITS | Clinical Summary ---
Author Organization [facility] Address [address] [place] [address] Care Team Providers Care School Childcare Attendant Name Role Phone Anderson Blount MD Unavailable [phone] Social History Tobacco Use Types Packs/Day Years Used Date Smoking Tobacco: Never Assessed Comments Unknown Sex and Gender Information Value Date Recorded Sex Assigned at Not on file Legal Sex Female 3:41 PM EDT Gender Identity Not on file Sexual Orientation Not on file Plan of Treatment Not on file Insurance [employer] MED[employer]ARE Care Teams School Childcare Attendant Relationship Specialty Start Date End Date Anderson Blount MD Referring Family Medicine 02/04/22
--- OUTSIDE RECORDS SUMMARY | 2025-02-10 08:34 | XMS_ITS | Patient Health Record ---
Author Organization [facility] Address [address] [place] [address] Care Team Providers Care Computer Animator Name Role Phone Vladislav Mccauley Primary Care Provider Vladislav Mccauley MD Unavailable Unavailabl e Reason For Referral No Information Medications Medication SIG (Take, Route, Frequency, Duration) Notes Start Date End Date Status Lovastatin 40 MG 1 tablet with the ev ening meal Orally Once a day Active Lisinopril 20 MG 1 tablet Orally Once a day Active Omeprazole 20 MG 1 capsule Orally Onc e a day Active Aspir-81 po daily Active Fish Oil 360mg 1 capsule Orally Onc e a day Active Calcium 600 MG 1 tablet Orally Once a day Active Bactrim DS 800-160 MG 1 tablet Orally Tw ice a day for 10 day(s) 05/01/2019 Not-Taking Social History Tobacco Use: Social History Observation Description Date Details (start date - stop date) Never Smoker NA - NA Tobacco Use/Smoking Question Answer Notes Are you a nonsmoker Alcohol Screen (Audit-C) Question Answer Notes Did you have a drink contain ing alcohol in the past year? Yes How often did you have a dri nk containing alcohol in the past year? Monthly or less (1 point) Points 1 Interpretation Negative Sexual History Question Answer Notes Had sex in the past 12 months (vaginal, oral, or anal)? No Have you ever had a Sexually transmitted disease ? No Tobacco use other than smoking: Question Answer Notes Are you an other tobacco user? No Problems Problem Type SNOMED Code ICD Code Onset Dates Problem Status W/U Status Risk Notes Problem 80906434 Essential (prima ry) hypertension (I10) Active confirmed Problem 008819388 Gastroesophageal reflux disease without esophagitis (K21.9) Active confirmed Problem 270925912 Abnormal EKG (R94.31) Active confirmed Problem 95080920 Other hyperlipid emia (E78.49) Active confirmed Plan Of Treatment Pending Test Test Name Order Date *Urinalysis Dipstick (PedIM) 05/01/2019 Insurance Providers Payer Name Payer Address Payer Phone Subscriber Number Group Number Insured Name Patient Relationship to Insured Coverage Start Date Coverage End Date [facility] [employer] [address] [address] [place] [address] [id number] Edwina Duffy Self - patient is the insured Medical (General) History Medical History History ICD Code Essential (primary) hypertension I10 Other hyperlipidemia E78.49 Gastroesophageal reflux disease without esophagitis K21.9 Surgical History Surgery Date(Month/Year) complete hysterectomy not due to cancer Hospitalization History Reason Date(Month/Year)
--- OUTSIDE RECORDS SUMMARY | 2025-02-10 08:34 | XMS_ITS | Patient Health Record ---
Author Organization [facility] in [place] Address [address] [place] [address] Care Team Providers Care Retail And Restaurant Name Role Phone Clifton Bolunt Primary Care Provider Allergies No Known Allergies Results Component Value Reference Range Notes FREE T3 Reviewed date:07/13/2024 01:56:03 PM Interpretation: Performing Lab: Notes/Report: [facility] , Free T3 2.34 2.18-3.98 pg/mL Performing Lab: see note ML - [facility] LB IRON Reviewed date:07/13/2024 01:56:03 PM Interpretation: Performing Lab: Notes/Report: [facility] , Iron 108.0 50.0-170.0 ug/dL Performing Lab: see note ML - [facility] LB LIPID PROFILE Reviewed date:07/13/2024 01:56:03 PM Interpretation: Performing Lab: Notes/Report: [facility] , Triglycerides 191 <=150 mg/dL Cholesterol 201 <=200 mg/dL HDL Cholesterol 49 40-60 mg/dL > or =60 mg/dl - LOW CARDIOVASCULAR RISK <40 mg/dl - HIGH CARDIOVASCULAR RISK LDL Cholesterol Calculated 114.0 <100 mg/dl OPTIMAL 100-129 mg/dl NEAR OR ABOVE OPTIMAL 130-159 mg/dl BORDERLINE HIGH 160-189 mg/dl HIGH >190 mg/dl VERY HIGH VLDL CHOLESTEROL 38.2 Chol HDL Ratio 4.1 3.3 - 4.4 LOW RISK 4.4 - 7.1 AVERAGE RISK 7.1 - 11.0 MODERATE RISK >11.0 HIGH RISK Performing Lab: see note ML - [facility] LB PROF 14(COMP METB) Reviewed date:07/13/2024 01:56:03 PM Interpretation: Performing Lab: Notes/Report: [facility] , Sodium 145 136-145 mmol/L Potassium 4.0 3.5-5.1 mmol/L Chloride 107 98-107 mmol/L Carbon Dioxide 29.8 21.0-32.0 mmol/L Anion Gap 12.2 Glucose 90 74-106 mg/dL Blood Urea Nitrogen 15.0 7.0-18.0 mg/dL Creatinine 0.78 0.55-1.02 mg/dL Estimated GFR ( Catie >60 >=60 mL/min/1.73m 2 Estimated GFR (Non- Pepper >60 >=60 mL/min/1.73m 2 BUN Creatinine Ratio 19.2 Calcium 9.3 8.5-10.1 mg/dL Bilirubin Total 0.7 0.2-1.0 mg/dL Aspartate Amino Transferase 16 15-37 U/L Alanine Aminotransferase 28 14-59 U/L Alkaline Phosphatase 74 46-116 U/L Total Protein 7.5 6.4-8.2 g/dL Albumin Level 3.7 3.4-5.0 g/dL Globulin 3.8 Albumin Globulin Ratio 1.0 Performing Lab: see note ML - [facility] LB T4 Reviewed date:07/13/2024 01:56:03 PM Interpretation: Performing Lab: Notes/Report: [facility] , T4 Thyroxine 7.20 4.80-13.90 ug/dL Performing Lab: see note ML - [facility] LB TSH Reviewed date:07/13/2024 01:56:03 PM Interpretation: Performing Lab: Notes/Report: [facility] , Thyroid Stimulating Hormone 2.988 0.358-3.740 uIU/mL Performing Lab: see note ML - [facility] LB VITAMIN D 25 [place] Reviewed date:07/13/2024 01:56:03 PM Interpretation: Performing Lab: Notes/Report: [facility] , Vitamin D 23.5 <20 ng/mL Vit D deficient 20-<30 ng/mL Vit D insufficient 30-100 ng/mL Vit D sufficient >100 ng/mL Potential Toxicity Performing Lab: see note ML - [facility] LB CBC AUTO DIFF Reviewed date:07/13/2024 01:56:03 PM Interpretation: Performing Lab: Notes/Report: [facility] , White Blood Count 5.4 4.0-11.0 10 3/uL Red Blood Count 4.15 4.20-5.40 10 6/uL Hemoglobin 13.0 12.0-16.0 g/dL Hematocrit 39.4 36.0-48.0 % Mean Corpuscular Volume 94.9 81.0-99.0 fL Mean Corpuscular Hemoglobin 31.3 26.7-34.0 pg Mean Corpuscular HGB Conc 33.0 29.9-35.2 g/dL Red Cell Distribution Width 12.9 11.0-15.0 % Platelet Count 227 150-450 10 3/uL Mean Platelet Volume 9.9 9.5-13.5 fL Neutrophils Percent Auto 50.9 43.0-75.0 % Lymphocytes Percent Auto 36.6 20.5-60.0 % Monocytes Percent Auto 9.5 1.7-12.0 % Eosinophils Percent Auto 0.9 0.9-7.0 % Basophils Percent Auto 0.6 0.2-2.0 % Immature Granulocytes Pct Auto 1.5 0.0-0.5 % Neutrophils Absolute Auto 2.7 1.4-6.5 10 3/uL Lymphocytes Absolute Auto 2.0 1.2-3.8 10 3/uL Monocytes Absolute Auto 0.5 0.3-0.8 10 3/uL Eosinophils Absolute Auto 0.1 0.0-0.7 10 3/uL Basophils Absolute Auto 0.0 0.0-0.1 10 3/uL Immature Granulocytes Abs Auto 0.08 0.00-0.03 10 3/uL Performing Lab: see note ML - [facility] LB UA DIP NONAUTO WO MICRO (810 02) - IN OFFICE Reviewed date:10/17/2024 01:26:40 PM Interpretation: Performing Lab: Notes/Report: COLOR yellow CLARITY clear GLUCOSE neg BILIRUBIN neg KETONE neg SPECIFIC GRAVITY 1.010 BLOOD Large PH 5 PROTEIN large UROBILINOGEN neg NITRITE neg LEUKOCYTE ESTERASE large UA DIP NONAUTO WO MICRO (810 02) - IN OFFICE Reviewed date:07/09/2024 01:27:36 PM Interpretation: Performing Lab: Notes/Report: COLOR Yellow CLARITY Clear GLUCOSE Neg BILIRUBIN Neg KETONE Neg SPECIFIC GRAVITY 1.020 BLOOD Neg PH 5 PROTEIN Neg UROBILINOGEN Neg NITRITE Neg LEUKOCYTE ESTERASE +++ GLYCOHEMOGLOBIN A1C Reviewed date:07/13/2024 01:56:03 PM Interpretation: Performing Lab: Notes/Report: [facility] , Glycohemoglobin A1C 6.1 4.5-6.2 % ADA RECOMMENDED LIMIT 4.0 - 6.0 ADA THERAPEUTIC TARGET < 7.0 ACTION SUGGESTED > 7.0 Estimated Average Glucose 128 Performing Lab: see note ML - [facility] LB MM tomosynthesis screening B I Reviewed date:07/17/2024 08:07:17 PM Interpretation: Performing Lab: Notes/Report: Source Facility: [place] [address] Mammography Report Signed Patient: JULIO CÉSAR SEGAL MR#: [id number] : 1950 Acct:[id number] Age/Sex: 73 / F ADM Date: 07/17/24 Loc: MAMMO Attending Dr: Anderson Blount M.D. Ordering Physician: Anderson Blount M.D. Results: Date of Service: 07/17/24 Follow Up: Procedure(s): MM tomosynthesis screening BI Accession Number(s): [id number] cc: Anderson Blount M.D. Patient Name: JULIO CÉSAR SEGAL MR#: [id number] : 1950 Exam Date: 07/17/2024 Ordering Doctor: DR Anderson Blount . RADIOLOGY REPORT PROCEDURE: MM TOMOSYNTHESIS SCREENING BI COMPARISON: MG MAMM SCREEN 3D SARITA CAD, 08/17/2022. MG MAMM SCREEN SARITA W CAD, 06/04/2020. MG MAMM SCREEN SARITA W CAD, 11/15/2016. MG MAMM SARITA SCRN W CAD DIG, 06/12/2014. INDICATIONS: Screening Calculator Name NCI Breast Cancer Risk Assessment Tool 5 Year Breast Cancer Risk 1.20% Lifetime Breast Cancer Risk 2.50% Personal Breast Cancer No Personal Ovarian Cancer No Treatments None Family Cancers None LOCATION: [facility] BREAST COMPOSITION: There are scattered areas of fibroglandular density. FINDINGS: DIAGNOSTIC CATEGORY 2--BENIGN FINDING: [...] BIOPSIED. Dictated by: Marcel Hinkle M.D. on 07/17/2024 at 15:57 Approved by: Marcel Hinkle M.D. on 07/17/2024 at 15:58 Dictated By: Marcel Hinkle M.D. Signed By: 07/17/24 1559 DD/ TD/TT: Pattern Worker: [place] [address] Mammography Report Signed Patient: JULIO CÉSAR SEGAL MR#: [id number] : 1950 Acct:[id number] Age/Sex: 73 / F ADM Date: 07/17/24 Loc: MAMMO Attending Dr: Don Blount M.D. Ordering Physician: Anderson Blount M.D. Results: Date of Service: 07/17/24 Follow Up: Procedure(s): MM tomosynthesis screening BI Accession Number(s): [id number] cc: Anderson Blount M.D. Patient Name: JULIO CÉSAR SEGAL MR#: [id number] : 1950 Exam Date: 07/17/2024 Ordering Doctor: DR Anderson Blount . RADIOLOGY REPORT PROCEDURE: MM TOMOSYNTHESIS SCREENING BI COMPARISON: MG MAMM SCREEN 3D SARITA CAD, 08/17/2022. MG MAMM SCREEN SARITA W CAD, 06/04/2020. MG MAMM SCREEN SARITA W CAD, 11/15/2016. MG MAMM SARITA SCRN W CAD DIG, 06/12/2014. INDICATIONS: Screening Calculator Name NCI Breast Cancer Risk Assessment Tool 5 Year Breast Cancer Risk 1.20% Lifetime Breast Canc er Risk 2.50% Personal Breast Canc er No Personal Ovarian Cancer No Treatments None Family Cancers None LOCATION: [facility] BREAST COMPOSITION: There are scattered areas of fibroglandular density. FINDINGS: DIAGNOSTIC CATEGORY 2--BENIGN FINDING: RIGHT BREAST: No significant suspicious finding. Scattered benign-appearing calcifications are present. Scattered benign-appearing lymph nodes are present. No significant change has occurred. LEFT BREAST: No significant suspicious finding. Scattered benign-appearing calcifications are present. Scattered benign-appearing lymph nodes are present. No significant change has occurred. RECOMMENDATIONS: ROUTINE MAMMOGRAM AN D CLINICAL EVALUATION IN 12 MONTHS. PLEASE NOTE: A ALISON L MAMMOGRAM DOES NOT EXCLUDE THE POSSIBILITY OF BREAST CANCER. A CLINICALLY SUSPICIOUS PALPABLE LUMP SHOULD BE BIOPSIED. Dictated by: Marcel Hinkle M.D. on 07/17/2024 at 15:57 Approved by: Marcel Hinkle M.D. on 07/17/2024 at 15:58 Dictated By: Marcel Hinkle M.D. Signed By: 07/17/24 1559 DD/ 1558 TD/TT: Pattern Worker: Reason For Referral No Information Medications Medication SIG (Take, Route, Frequency, Duration) Notes Start Date End Date Status Lisinopril 20 MG 1 tablet Orally Once a day for 90 days Active Cholecalciferol 50 MCG (1999 [place]) 1 capsule Orally Once a day Active [...] Question Answer Notes Patient is a nonsmoker Alcohol Screen (Audit-C) Question Answer Notes Did you have a drink contain ing alcohol in the past year? Yes How often did you have 6 or more drinks on one occasion in the past year? Never (0 point) How many drinks did you have on a typical day when you were drinking in the past year? 1 or 2 drinks (0 point) How often did you have a dri nk containing alcohol in the past year? Monthly (2 points) Points 2 Interpretation Negative AUDIT-C (Standard) Question Answer Notes Did you have a drink containing alcohol in the p ast year? No Points 0 Interpretation Negative Problems Problem Type SNOMED Code ICD Code Onset Dates Problem Status W/U Status Risk Notes Problem Hypertension (I10) Active confirmed Problem Gastroesophageal reflux disease (618322837) GERD (gastroesophageal reflux disease) (K21.9) Active confirmed Problem hypercholesterolemia (disorder) (54080254) Hypercholesteremia (E78.00) Active confirmed Vital Signs Blood pressure diastolic 60 mm Hg 01/28/2025 Height 65 in 01/28/2025 Blood pressure systolic 98 mm Hg 01/28/2025 Weight 151.6 lbs 01/28/2025 BMI 25.22 kg/m2 01/28/2025 Encounters Encounter Location Date Provider Diagnosis [facility] [address] [place] [address] 01/12/2025 Clifton Fordy [facility] [address] [place] [address] 10/17/2024 Clifton Hoy Urinary frequency R3 5.0 [facility] [address] [place] [address] 07/09/2024 Clifton Hoy Dysuria R30.0 ; Hype rtension I10 ; Hypercholesteremia E78.00 and GERD (gastroesophageal reflux disease) K21.9 [facility] [address] [place] [address] 01/28/2025 Clifton Hoy Hypertension I10 [facility] [address] [place] [address] 01/07/2025 Clfiton Hoy Hypertension I10 [facility] [address] [place] [address] 01/02/2025 Clifton Logany [facility] [address] [place] [address] 07/17/2024 Clifton Hoy [facility] [address] [place] [address] 10/14/2024 Clifton Hoy [facility] [address] [place] [address] 10/14/2024 Clifton Hoy [facility] [address] [place] [address] 10/17/2024 Clifton Hoy Dysuria R30.0 [facility] [address] [place] [place] [address] 10/30/2024 Clifton Hoy Shortness of breath R06.02 [facility] [address] [facility] [place] [address] 11/03/2024 Clifton Hoy Shortness of breath R06.02 [facility] [address] [facility] [place] [address] 04/03/2024 Clifton Hoy [facility] [address] [place] [facility] [place] [place] [address] 06/25/2024 Clifton Fordy Wellness examination Z01.89 ; Hypertension I10 and Hypercholesteremia E78.00 [facility] [address] [place] [address] 07/13/2024 Clifton Fordy Assessments Encounter Date Diagnosis (ICD Code) Assessment Notes Treatment Notes Treatment Clinical Notes Section Notes 07/09/2024 Dysuria (ICD-10 - R30.0) 07/09/2024 Hypertension (ICD-10 - I10) 10/17/2024 Urinary frequency (ICD-10 - R35.0) 01/07/2025 Hypertension (ICD-10 - I10) 01/28/2025 Hypertension (ICD-10 - I10) 06/25/2024 Hypertension (ICD-10 - I10) 06/25/2024 Wellness examination (ICD-10 - Z01.89) 10/17/2024 Dysuria (ICD-10 - R30.0) 10/30/2024 Shortness of breath (ICD-10 - R06.02) 11/03/2024 Shortness of breath (ICD-10 - R06.02) 07/09/2024 Hypercholesteremia (ICD-10 - E78.00) 06/25/2024 Hypercholesteremia (ICD-10 - E78.00) 07/09/2024 GERD (gastroesophage al reflux disease) (ICD-10 - K21.9) Plan Of Treatment Pending Test Test Name Order Date CMP (COMPLETE METABOLIC PANEL) 3 CMP (COMPLETE METABOLIC PANEL) 4 CMP (COMPLETE METABOLIC PANEL) 4 HEMOGLOBIN A1C (GLYCO) 07/09/2024 HEMOGLOBIN A1C (GLYCO) 07/04/2023 IRON, TOTAL 07/04/2023 IRON, TOTAL 07/09/2024 LIPID PANEL (CHOL/TRIG/HDL/LDL) 07/09/20 24 LIPID PANEL (CHOL/TRIG/HDL/LDL) 07/04/20 23 CBC WITH DIFF 07/04/2023 CBC WITH DIFF 07/09/2024 VITAMIN D, 25 LEVEL (TOTAL) 07/09/2024 VITAMIN D, 25 LEVEL (TOTAL) 07/04/2023 EKG w Interp & Report - performed 2023 MAMM MAMMOGRAM CAD DIAGNOSTIC 07/04/2023 T3 FREE, T4 FREE and TSH 06/25/2024 FECAL OCCULT BLOOD 06/25/2024 UA (Urinalysis, Dipstix only - w/o micro ) 04/09/2023 Cardiolyte Stress Test 01/29/2024 CBC AUTO DIFF 01/28/2025 CBC AUTO DIFF 06/25/2024 GLYCOHEMOGLOBIN A1C 06/25/2024 LIPID PROFILE 06/25/2024 PROF 14(COMP METB) 01/28/2025 THYROID PANEL (T4/TSH/FREE T3) 5 THYROID PANEL (T4/TSH/FREE T3) 4 THYROID PANEL (T4/TSH/FREE T3) 3 MM screening mammo BI 07/09/2024 Vitamin D 06/25/2024 Insurance Providers Payer Name Payer Address Payer Phone Subscriber Number Group Number Insured Name Patient Relationship to Insured Coverage Start Date Coverage End Date [employer] [place] [address] [place] [phone] [id number] Julio César Segal Self - patient is the insured 4 Medical (General) History Medical History History ICD Code Bladder incontinence R32 Chest pain R07.9 Dyspnea R06.00 GERD (gastroesophageal reflux disease) K 21.9 Hyperlipidemia E78.5 Hypertension I10 Osteopenia M85.80 Seborrheic keratosis L82.1 Ureteral obstruction N13.5 Surgical History Surgery Date(Month/Year) HYSTERECTOMY TOTAL
--- OUTSIDE RECORDS SUMMARY | 2025-02-10 08:34 | XMS_ITS | Referral Summary ---
Author Organization [facility] Address [address] [place] [address] Care Team Providers Care Enterprise Solutions Architect Name Role Phone Unavailable Primary Care Provider Unavailabl e Social History Tobacco Use Types Packs/Day Years Used Date Smoking Tobacco: Never Assessed [place] Safety & Environment Answer Date Rec orded [...] 03/27/2022 10:21 AM EDT Plan of Treatment Not on file
[2025-02-10 08:52] LABS: Basophils Percent Auto 0.4 % (0.2-2.0); Eosinophils Absolute Auto 0.1 10^3/uL (0.0-0.7); Eosinophils Percent Auto 1.7 % (0.9-7.0); Hematocrit 36.4 % (36.0-48.0); Hemoglobin 12.1 g/dL (12.0-16.0); Immature Granulocytes Abs Auto 0.04 10^3/uL (0.00-0.03); Immature Granulocytes Pct Auto 0.9 % (0.0-0.5); Lymphocytes Percent Auto 43.7 % (20.5-60.0); Mean Corpuscular HGB Conc 33.2 g/dL (29.9-35.2); Mean Corpuscular Hemoglobin 31.7 pg (26.7-34.0); Mean Corpuscular Volume 95.3 fL (81.0-99.0); Mean Platelet Volume 10.2 fL (9.5-13.5); Monocytes Absolute Auto 0.5 10^3/uL (0.3-0.8); Neutrophils Percent Auto 42.3 % (43.0-75.0); Platelet Count 227 10^3/uL (150-450); Red Blood Count 3.82 10^6/uL (4.20-5.40); Red Cell Distribution Width 13.1 % (11.0-15.0); White Blood Count 4.6 10^3/uL (4.0-11.0)
[2025-02-10 10:18] LABS: Alanine Aminotransferase 21 U/L (14-59); Albumin Globulin Ratio 1.1; Albumin Level 3.8 g/dL (3.4-5.0); Alkaline Phosphatase 63 U/L (46-116); Anion Gap 13.9; Aspartate Amino Transferase 16 U/L (15-37); BUN Creatinine Ratio 22.9; Bilirubin Total 0.6 mg/dL (0.2-1.0); Calcium 9.3 mg/dL (8.5-10.1); Carbon Dioxide 27.3 mmol/L (21.0-32.0); Chloride 106 mmol/L (98-107); Estimated GFR (African America >60 (>=60 mL/min/1.73m^2); Estimated GFR (Non-African Ame >60 (>=60 mL/min/1.73m^2); Free T3 2.39 pg/mL (2.18-3.98); Globulin 3.6 g/dL; Glucose 73 mg/dL (74-106); Potassium 4.2 mmol/L (3.5-5.1); Sodium 143 mmol/L (136-145); Thyroid Stimulating Hormone 2.273 uIU/mL (0.358-3.740); Total Protein 7.4 g/dL (6.4-8.2)
== END 2025-02-10 08:27 | disposition home or self-care (01) ==
PROVIDERS: PCP Family Medicine; Visit Provider Family Medicine
DX: R53.83 Other fatigue (principal); I10 Essential (primary) hypertension; E03.9 Hypothyroidism, unspecified
CPT/HCPCS: 36415; 80053; 84436; 84443; 84481; 85025